=== PATIENT | female | born 1950 | race Caucasian/White ===

== ENCOUNTER 2016-10-14 17:27 | Inpatient (IN) | payer BC ==
[2016-10-14] MEDS ORDERED: NS 0.9% 1000 ML* 1,000 ML IV ONE ×2 (18:19→20:15)
[2016-10-14] MEDS ORDERED: HYDROmorphone* 1 MG/ML 1 ML SYR IV ONE ×2 (18:19→22:35)
[2016-10-14] MEDS ORDERED: Ondansetron INJ* 2 MG/ML VIAL IV ONE (18:19)
--- NOTE | 2016-10-14 18:57 | RAD ---
INDICATION: Vomiting. History of small bowel obstruction. COMPARISON: October 01, 2013 TECHNIQUE: Erect and supine views of the abdomen are submitted. FINDINGS: Bones: There are no acute bony findings. Soft tissues: The soft tissues appear normal. The psoas margins are sharp. Bowel gas pattern: Nondiagnostic. There is a paucity of gas in the colon. There is one mildly prominent loop of small bowel left mid abdomen Calcifications: There are no abnormal calcifications. Other: Postsurgical changes with clips in gallbladder fossa and sutures in the right mid abdomen IMPRESSION: NONSPECIFIC BOWEL GAS PATTERN. SUGGEST FOLLOW-UP INDICATED.
[2016-10-14 19:41] LABS: Hematocrit 46 % (35-47); Hemoglobin 15.1 g/dl (12.0-16.0); Mean Corpuscular HGB Conc 33 g/dl (31-36); Mean Corpuscular Hemoglobin 28 pg (27-31); Mean Corpuscular Volume 84 fL (80-97); Mean Platelet Volume 8 um3 (7.4-10.4); Red Blood Count 5.45 10^6/ul (4.0-5.4); Red Cell Distribution Width 14 % (10.5-15)
[2016-10-14 19:56] LABS: Albumin 4.7 g/dL (3.2-5.2); BUN/Creatinine Ratio 18.6 (8-20); C Reactive Protein 18.65 mg/L (< 5.00); Calcium 10.3 mg/dL (8.6-10.3); EGFR African American 85.4 (>60); EGFR Non-African American 66.4 (>60); Globulin 3.3 g/dL (2-4); Potassium 4.2 mmol/L (3.5-5.0); Total Bilirubin 0.5 mg/dL (0.2-1.0)
--- NOTE | 2016-10-14 22:15 | ED ---
Brielle, DoctorMacie, scribed for Treasure Trujillo MD on 10/14/16 at 1800 . GI/ HPI - HPI Summary HPI Summary: 65 year old female arrived to [facility] c/o lower abdominal pain with N/V/D beginning today. She rates her abdominal pain as 10/10. 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 Pt has a PMHx of HTN, GERD, hypothyroidism, COPD, asthma, and hernia repair. - History of Current Complaint Chief Complaint: EDAbdPain Time Seen by Provider: 10/14/16 17:44 Stated Complaint: ABD PAIN,VOMITING Hx Obtained From: Patient Onset/Duration: Started Hours Ago Timing: Constant, Lasting Hours Severity: Moderate Current Severity: Moderate Pain Intensity: 10 - On 0-10 Numerical Scale Location of Pain: Diffuse Associated Signs and Symptoms: Positive: Nausea, Vomiting, Diarrhea - Allergy/Home Medications Allergies/Adverse Reactions: Allergies Allergy/AdvReac Type Severity Reaction Status Date / Time Adhesive Tape Allergy Blisters Verified 10/14/16 17:38 Latex Allergy Blisters Verified 10/14/16 17:38 Levofloxacin [From Levaquin] Allergy Rash Verified 10/14/16 17:38 Sulfa Antibiotics Allergy Unknown Verified 10/14/16 17:38 Reaction Details Acetaminophen [From Percocet] AdvReac Vomiting Verified 10/14/16 17:38 Hydrocodone [From Vicodin] AdvReac Vomiting Verified 10/14/16 17:38 Oxycodone [From Percocet] AdvReac Vomiting Verified 10/14/16 17:38 PMH/Surg Hx/FS Hx/Imm Hx Endocrine/Hematology History: Reports: Hx Thyroid Disease - hypothyroid Denies: Hx Diabetes Cardiovascular History: Reports: Hx Hypertension Respiratory History: Reports: Hx Asthma, Hx Chronic Obstructive Pulmonary Disease (COPD), Hx Sleep Apnea - no bipap/cpap, Other Respiratory Problems/ Disorders - COPD GI History: Reports: Hx Gastroesophageal Reflux Disease, Hx Hiatal Hernia, Other GI Disorders - Clarisse, Musculoskeletal History: Reports: Hx Arthritis, Other Musculoskeletal History - scoliosis Sensory History: Reports: Hx Contacts or Glasses Denies: Hx Hearing Aid Opthamlomology History: Reports: Hx Contacts or Glasses - Cancer History Cancer Type, Location and Year: CERVICAL CA Hx Chemotherapy: No - Surgical History Surgery Procedure, Year, and Place: Cholecystectomy. appendectomy, herniorrhaphy. tonsilectomy, total hysterectomy at age 27, removal of adhesions. Right arm tendon repair. Rhinoplasty. Cyst removal from sinus. SMALL INTESTINE BLOCKAGE REPAIRED Hx Anesthesia Reactions: No Infectious Disease History: No Infectious Disease History: Denies: Traveled Outside the [place] in Last 30 Days - Family History Known Family History: Positive: Other - BROTHER - DYSLIPIDEMIA, HIV - Social History Occupation: Employed Full-time Lives: Alone Alcohol Use: None Hx Substance Use: No Substance Use Type: Reports: None Hx Tobacco Use: Yes Type: Cigarettes Amount Used/How Often: 1 ppd Length of Time of Smoking/Using Tobacco: 40+ years Have You Smoked in the Last Year: Yes Review of Systems Negative: Fever Positive: Abdominal Pain, Vomiting, Diarrhea, Nausea All Other Systems Reviewed And Are Negative: Yes Physical Exam Triage Information Reviewed: Yes Vital Signs On Initial Exam: Initial Vitals Temp Pulse Resp BP Pulse Ox 96.6 F 78 16 178/93 100 10/14/16 17:39 10/14/16 17:39 10/14/16 17:39 10/14/16 17:39 10/14/16 17:39 Vital Signs Reviewed: Yes Appearance: Positive: Well-Appearing, Pain Distress Skin: Positive: Warm, Skin Color Reflects Adequate Perfusion, Dry Eyes: Positive: EOMI, TERI ENT: Positive: Pharynx normal, TMs normal Neck: Positive: Supple, Nontender Respiratory/Lung Sounds: Positive: Clear to Auscultation, Breath Sounds Present. Negative: Rales, Rhonchi, Wheezes Cardiovascular: Positive: RRR. Negative: Murmur, Rub Abdomen Description: Positive: Nontender, Soft. Negative: Distended, Guarding Bowel Sounds: Positive: Present Musculoskeletal: Positive: Strength/ROM Intact. Negative: Edema Left, Edema Right Neurological: Positive: Sensory/Motor Intact, Alert, Oriented to Person Place, Time, CN Intact II-III Psychiatric: Positive: Normal, Affect/Mood Appropriate Diagnostics - Vital Signs Vital Signs Temp Pulse Resp BP Pulse Ox 10/14/16 17:39 96.6 F 78 16 178/93 100 - Laboratory Lab Results: Lab Results 10/14/16 10/14/16 Range/Units 19:28 19:28 WBC 19.0 H (3.5-10.8) 10^3/ul RBC 5.45 H (4.0-5.4) 10^6/ul Hgb 15.1 (12.0-16.0) g/dl Hct 46 (35-47) % MCV 84 (80-97) fL MCH 28 (27-31) pg MCHC 33 (31-36) g/dl RDW 14 (10.5-15) % Plt Count 361 (150-450) 10^3/ul MPV 8 (7.4-10.4) um3 Neut % (Auto) 86.3 H (38-83) % Lymph % (Auto) 8.9 L (25-47) % [place] % (Auto) 4.2 (1-9) % Eos % (Auto) 0.2 (0-6) % Baso % (Auto) 0.4 (0-2) % Absolute Neuts (auto) 16.4 H (1.5-7.7) 10^3/ul Absolute Lymphs (auto) 1.7 (1.0-4.8) 10^3/ul Absolute Monos (auto) 0.8 (0-0.8) 10^3/ul Absolute Eos (auto) 0 (0-0.6) 10^3/ul Absolute Basos (auto) 0.1 (0-0.2) 10^3/ul Absolute Nucleated RBC 0 10^3/ul Nucleated RBC % 0 Sodium 133 (133-145) mmol/L Potassium 4.2 (3.5-5.0) mmol/L Chloride 99 L (101-111) mmol/L Carbon Dioxide 22 (22-32) mmol/L Anion Gap 12 H (2-11) mmol/L BUN 16 (6-24) mg/dL Creatinine 0.86 (0.51-0.95) mg/dL Est GFR ( Amer) 85.4 (>60) Est GFR (Non-Af Amer) 66.4 (>60) BUN/Creatinine Ratio 18.6 (8-20) Glucose 168 H (70-100) mg/dL Calcium 10.3 (8.6-10.3) mg/dL Total Bilirubin 0.50 (0.2-1.0) mg/dL AST 21 (13-39) U/L ALT 21 (7-52) U/L Alkaline Phosphatase 107 H (34-104) U/L C-Reactive Protein 18.65 H (< 5.00) mg/L Total Protein 8.0 (6.4-8.9) g/dL Albumin 4.7 (3.2-5.2) g/dL Globulin 3.3 (2-4) g/dL Albumin/Globulin Ratio 1.4 (1-3) Lipase 40 (11.0-82.0) U/L Result Diagrams: 10/14/16 19:28 10/14/16 19:28 Lab Statement: Any lab studies that have been ordered have been reviewed, and results considered in the medical decision making process. - Radiology Abdomen X-Ray Radiology Interpretation Completed By: Radiologist - IMPRESSION: NONSPECIFIC BOWEL GAS PATTERN. SUGGEST FOLLOW-UP INDICATED. - EKG 19:05 Cardiac Rate: NL - 72 bpm EKG Rhythm: Sinus Rhythm - normal ST Segment: Normal Ectopy: None GIGU Course/Dx - Course Course Of Treatment: 65 yo female with wbc 19, lactic acid not able to be obtained given difficultyu getting blood in this pt. Her wbc may just be due to emesis. Awaiting CT hr not elevated and pt most concerned she has an sbo. Pt awaiting CT abd pelvis pt to be signed out to Dr. Hicks for final disposition - Diagnoses Provider Diagnoses: Abdominal pain Discharge - Discharge Plan Condition: Stable Disposition: OTHER Discharge Disposition Comment: final disposition by Dr. Hicks The documentation as recorded by the scribDoctor meraz Tahera accurately reflects the service I personally performed and the decisions made by me, Treasure Trujillo MD.
[2016-10-14] MEDS ORDERED: LORazepam INJ* 2 MG/ML 1 ML VIAL IV PUSH ONE (22:35)
--- NOTE | 2016-10-14 23:36 | HP ---
H&P (Free Text) History and Physical: PCP: Hema Hanna MD Date/Time of Evaluation: 10/14/2016 2335 CC: abdominal pain HPI: Mrs Mayo is a 65YO female HX COPD, HTN, endometriosis, & ovarian CA presents with onset this AM of gradually worsening /10 uncharacterizable diffuse non-radiating abdominal pain. She reports subjective F/C, sweats, N/V, B /U/F of urine, diarrheal, and SOB, but no chest pain, cough, or congestion. Emesis does not have black or bloody content. She had a SBO requiring small bowel resection in 2013 which felt the same as today's pain. Evaluation is notable for WBCs of 19k 86.3% neutrophils, glucose of 168, but otherwise reasonable normal. Vitals are hypertensive systolics 150-170s, otherwise stable. CT abd/pel is pending. PMedHx COPD HTN hypothyroidism SBO requiring small bowel resection asthma ovarian CA 2nd SANDY exposure endometriosis GERD Allergies Adhesive Tape Allergy (Verified 10/14/16 17:38) Blisters Latex Allergy (Verified 10/14/16 17:38) Blisters Levofloxacin [From Levaquin] Allergy (Verified 10/14/16 17:38) Rash Sulfa Antibiotics Allergy (Verified 10/14/16 17:38) Unknown Reaction Details Acetaminophen [From Percocet] Adverse Reaction (Verified 10/14/16 17:38) Vomiting Hydrocodone [From Vicodin] Adverse Reaction (Verified 10/14/16 17:38) Vomiting Oxycodone [From Percocet] Adverse Reaction (Verified 10/14/16 17:38) Vomiting Ambulatory Orders Nursing to reconcile. Fluticasone NASAL * [Flonase *] 2 spray NASAL DAILY 09/26/13 Fluticasone-Salmeterol 500-50* [Advair Diskus 500-50*] 1 puff INH BID 09/26/13 Lisinopril TAB* [Prinivil TAB 10 MG*] 20 mg PO DAILY 09/26/13 Tiotropium CAP.INH* [Spiriva*] 18 mcg INH DAILY 09/26/13 Albuterol 2.5MG/3ML (0.083%)* [Ventolin 2.5 MG/3 ML NEB.SABINA*] 2.5 mg INH Q6H PRN 11/24/15 Albuterol HFA INHALER* [Ventolin HFA Inhaler*] 2 puff INH Q4H PRN 11/24/15 Albuterol/Ipratropium RESP(NF) [Combivent Respimat(NF)] 1 puff INH QID 11/24/15 Cetirizine* [ZyrTEC*] 10 mg PO DAILY 11/24/15 Cyanocobalamin TAB* [Vitamin B12 TAB*] 500 mcg PO DAILY 11/24/15 Esomeprazole(NF) [NexIUM(NF)] 40 mg PO DAILY 11/24/15 Levothyroxine TAB* [Synthroid TAB*] 125 mcg PO QAM 11/24/15 Magnesium Oxide TAB* [MagOx 400 TAB*] 400 mg PO DAILY 11/24/15 Metaxalone TAB* [Skelaxin TAB*] 800 mg PO TID PRN 11/24/15 Montelukast Sodium TAB* [Singulair TAB*] 10 mg PO DAILY 11/24/15 Potassium Chlor TAB* [Klor Con ER TAB*] 20 meq PO BID 11/24/15 predniSONE TAB* [Deltasone TAB*] 20 mg PO DAILY 11/24/15 traMADol TAB* [Ultram*] 50 mg PO Q12H PRN #8 tab MDD 2 04/21/16 PSurgHx tonsillectomy cholecystectomy abdominal adhesolysis ventral hernia repair small bowel resection 2nd SBO 2nd adhesions appendectomy hysterectomy SocHx: former smoker w/ ~40PYHX, former drinker, denies recreational drugs; retired from [email or web address]; full code status FamHx: Mother passed in her 70s from heart problems. Father passed in his 50s 2nd complications of alcoholism. ROS: as above, otherwise reviewed and all were negative Constitutional: NAD, normally developed, super morbidly obese white female vitals: Vital Signs Temp 35.9 C 10/14/16 17:39 Pulse 80 10/14/16 23:00 Resp 18 10/14/16 22:46 BP 188/94 10/14/16 23:00 Pulse Ox 96 10/14/16 23:00 Intake & Output 10/13/16 10/14/16 10/14/16 23:59 11:59 23:59 Weight 106.594 kg HEENM: atraumatic; sclera/conjunctiva: non-icteric/clear; hearing: clinically intact; oropharynx: clear, mucosa moist Neck: soft tissue: non-tender; thyroid: normal Pulmonary: clear to auscultation bilaterally, good aeration, no accessory muscle use CV: RR/RR, normal S1S2, no carotid bruit, no jugular venous distention, 2+ B DP/ PT, no edema Abdominal: soft, non-distended, diffusely moderately tender, no rebound/guarding /rigidity, hypoactive bowel sounds, no hepatosplenomegaly or masses, no costovertebral angle tenderness Musculoskeletal: general: grossly intact; gait: stable Integumental: normal appearance and texture of exposed skin Psychiatric orientation: AA&O to PPS affect: fatigued mood: cooperative eye contact: poor content: reliable responses: mildly slowed insight: fair to good Testing: Lab Results 10/14/16 10/14/16 Range/Units 19:28 19:28 WBC 19.0 H (3.5-10.8) 10^3/ul RBC 5.45 H (4.0-5.4) 10^6/ul Hgb 15.1 (12.0-16.0) g/dl Hct 46 (35-47) % MCV 84 (80-97) fL MCH 28 (27-31) pg MCHC 33 (31-36) g/dl RDW 14 (10.5-15) % Plt Count 361 (150-450) 10^3/ul MPV 8 (7.4-10.4) um3 Neut % (Auto) 86.3 H (38-83) % Lymph % (Auto) 8.9 L (25-47) % Bertie % (Auto) 4.2 (1-9) % Eos % (Auto) 0.2 (0-6) % Baso % (Auto) 0.4 (0-2) % Absolute Neuts (auto) 16.4 H (1.5-7.7) 10^3/ul Absolute Lymphs (auto) 1.7 (1.0-4.8) 10^3/ul Absolute Monos (auto) 0.8 (0-0.8) 10^3/ul Absolute Eos (auto) 0 (0-0.6) 10^3/ul Absolute Basos (auto) 0.1 (0-0.2) 10^3/ul Absolute Nucleated RBC 0 10^3/ul Nucleated RBC % 0 Sodium 133 (133-145) mmol/L Potassium 4.2 (3.5-5.0) mmol/L Chloride 99 L (101-111) mmol/L Carbon Dioxide 22 (22-32) mmol/L Anion Gap 12 H (2-11) mmol/L BUN 16 (6-24) mg/dL Creatinine 0.86 (0.51-0.95) mg/dL Est GFR ( Amer) 85.4 (>60) Est GFR (Non-Af Amer) 66.4 (>60) BUN/Creatinine Ratio 18.6 (8-20) Glucose 168 H (70-100) mg/dL Calcium 10.3 (8.6-10.3) mg/dL Total Bilirubin 0.50 (0.2-1.0) mg/dL AST 21 (13-39) U/L ALT 21 (7-52) U/L Alkaline Phosphatase 107 H (34-104) U/L C-Reactive Protein 18.65 H (< 5.00) mg/L Total Protein 8.0 (6.4-8.9) g/dL Albumin 4.7 (3.2-5.2) g/dL Globulin 3.3 (2-4) g/dL Albumin/Globulin Ratio 1.4 (1-3) Lipase 40 (11.0-82.0) U/L ECG, personally reviewed: NSR rate 72, no ischemia XRY abdomen, personally reviewed: IMPRESSION: NONSPECIFIC BOWEL GAS PATTERN. SUGGEST FOLLOW-UP INDICATED. CT abd/pel: , ordered, pending Impression: 65F presenting with gradual onset of diffuse abdominal pain associated with non-bloody N/V, sweats, & diarrhea similar to previous SBO DIAGNOSIS & PLAN Primary abdominal pain, suspect SBO : CT abd/pel pending : pain control : no ABX, monitor : blood & urine CXs : consider surgical consultation in AM pending CT reports & clinical course overnight : supportive care Secondary COPD : albuterol nebs : mometasone/formoterol : tiotropium : incentive spirometry HTN : review meds once reconciled hypothyroidism : review meds once reconciled GERD : omeprazole Admission Rational: observation for abdominal pain DVTp: SCDs & heparin GTT Code Status: full HCP:
[2016-10-14] MEDS ORDERED: HYDROmorphone* 1 MG/ML 1 ML SYR IV PRN (23:50)
[2016-10-14] MEDS ORDERED: PROCHLORPERAZINE INJ 5 MG/ML 2 ML VIAL IV PRN (23:50)
[2016-10-14] MEDS ORDERED: Albuterol 2.5 MG/3 ML NEB.SOL* (0.083%) INH PRN (23:50)
[2016-10-15] MEDS: NS 0.9% 1000 ML* 1,000 ML IV SCH (02:56)
[2016-10-15] MEDS: Pantoprazole IV* 40 MG IV SCH ×2 (02:56→08:24)
[2016-10-15] MEDS: Albuterol 2.5 MG/3 ML NEB.SOL* (0.083%) INH SCH ×2 (04:33→07:22)
[2016-10-15] MEDS: Heparin VIAL(*) 5000 UNITS/ML VIAL (FIVE THOUSAND) SUBCUT SCH ×2 (06:21→14:31)
[2016-10-15 07:19] LABS: Hematocrit 46 % (35-47); Hemoglobin 15.2 g/dl (12.0-16.0); Mean Corpuscular HGB Conc 33 g/dl (31-36); Mean Corpuscular Hemoglobin 28 pg (27-31); Mean Corpuscular Volume 85 fL (80-97); Mean Platelet Volume 8 um3 (7.4-10.4); Red Blood Count 5.43 10^6/ul (4.0-5.4); Red Cell Distribution Width 14 % (10.5-15); White Blood Count 17.4 10^3/ul (3.5-10.8)
[2016-10-15] MEDS ORDERED: Piperac/Tazob 3.375 gm in NS* 3.375 GM/100 ML BAG IVPB ONE (08:00)
--- NOTE | 2016-10-15 08:07 | RAD ---
INDICATION: Small bowel obstruction COMPARISON: CT November 24, 2015 TECHNIQUE: Axial source images were acquired from the level hemidiaphragms to the symphysis pubis. Intravenous contrast was not given reportedly related to patient concerns. This limits evaluation of the solid viscera. Lung bases: Linear changes in both lung bases is most consistent with atelectasis or scarring. Liver: The liver is enlarged with findings of hepatic steatosis. Noncontrast imaging shows no evidence of a hepatic mass or ductal dilatation. Gallbladder: Cholecystectomy. Spleen: The spleen is normal in size. The noncontrast CT appearance is normal. Pancreas: Noncontrast imaging shows no pancreatic mass or ductal dilitation. Adrenal glands: No masses are identified. There may be mild left adrenal hyperplasia Kidneys/Bladder: There is no evidence of nephrolithiasis or CT evidence of hydronephrosis. Noncontrast imaging shows no evidence of a renal mass. The bladder is unremarkable.. Adenopathy: There is no evidence of intraperitoneal or retroperitoneal adenopathy. Evaluation is limited without oral contrast. Fluid collections: There are no free or localized fluid collections. Vessels: The aorta and iliac vessels are normal in caliber. There are no significant atherosclerotic changes. The IVC appears normal Pelvic organs: There is hysterectomy. There is no adnexal mass GI tract: Small bowel obstruction with dilatation of multiple fluid-filled loops small bowel measuring up to 4 cm (see below). There is colonic resection in the right abdomen. The colon is decompressed. Soft tissues: There are multiple ventral hernias. The supraumbilical hernia contains both large and small bowel. The small bowel is dilated in the portion of the herniated left of midline. There are is confirmed on clinical hernias as well containing small bowel. The small bowel obstructions with age related to these hernias. Osseous structures: There are no acute osseous findings. IMPRESSION: SMALL BOWEL OBSTRUCTION SECONDARY TO MULTIPLE VENTRAL HERNIAS.
[2016-10-15] MEDS: Ondansetron INJ* 2 MG/ML VIAL IV PRN ×2 (08:27→17:34)
[2016-10-15] MEDS: Mometasone/Formoter 200/5 MDI INH SCH ×2 (08:50→23:33)
[2016-10-15] MEDS ORDERED: Phenol 1.4% Spray* 177 ML BTL MT PRN (09:08)
--- NOTE | 2016-10-15 09:50 | PN ---
Subjective Date of Service: 10/15/16 Interval History: This is a 65 yo female with COPD who presented with c/o abdominal pain and evidence of SBO with multiple ventral hernias containing loops of small bowel. NG tube has been placed, output has been low this am and patient has vomited once. She reports that she is still quite nauseated with some abdominal pain but improved since admission. She denies SOB or cough, no recent illness. Objective Active Medications: Albuterol (Ventolin 2.5 Mg/3 Ml Neb.Iwona*) 2.5 mg INH Q2H PRN PRN Reason: SOB/WHEEZING Albuterol (Ventolin 2.5 Mg/3 Ml Neb.Iwona*) 2.5 mg INH [id number] AWAKE [facility] Last Admin: 10/15/16 07:22 Dose: 2.5 mg Heparin Sodium (Porcine) (Heparin Vial(*)) 5,000 units SUBCUT Q8HR [facility] Last Admin: 10/15/16 06:21 Dose: 5,000 units Hydromorphone HCl (Dilaudid Iv*) 1 mg IV Q2H PRN PRN Reason: PAIN Sodium Chloride (Ns 0.9% 1000 Ml*) 1,000 mls @ 125 mls/hr IV PER RATE [facility] Last Admin: 10/15/16 02:56 Dose: 125 mls/hr Piperacillin Sod/Tazobactam Sod (Zosyn 3.375 Gm In Ns Premix*) 3.375 gm in 100 mls @ 25 mls/hr IVPB Q8H [facility] Mometasone Furoate/Formoterol Fumar (Dulera 200/5 Mdi*) 2 puff INH BID [facility] Last Admin: 10/15/16 08:50 Dose: 2 inh Ondansetron HCl (Zofran Inj*) 4 mg IV Q6H PRN PRN Reason: NAUSEA Last Admin: 10/15/16 08:27 Dose: 4 mg Pantoprazole Sodium (Protonix Iv*) 40 mg IV DAILY [facility] Last Admin: 10/15/16 08:24 Dose: 40 mg Phenol/Menthol (Chloroseptic Throat [place]*) 2 spray MT Q4H PRN PRN Reason: SORE THROAT Prochlorperazine Edisylate (Compazine Inj*) 10 mg IV Q6H PRN PRN Reason: NAUSEA Vital Signs: Temp Pulse Resp BP Pulse Ox 98.3 F 99 18 160/71 91 10/15/16 07:36 10/15/16 07:36 10/15/16 08:00 10/15/16 07:36 10/15/16 07:36 Appearance: Ill appearing in who appears somewhat uncomfortable. Neck: NL Appearance and Movements; NL JVP Respiratory: Symmetrical Chest Expansion and Respiratory Effort, Clear to Auscultation Cardiovascular: NL Sounds; No Murmurs; No JVD, RRR Abdominal: - - no bowel sounds, abdomen distended, TTP rather diffusely, but greater along midline Extremities: No Edema Skin: No Rash or Ulcers Neurological: Alert and Oriented x 3 Result Diagrams: 10/15/16 07:07 10/14/16 19:28 Additional Lab and Data: . Diagnostic Imaging: CT abd/pelvis - SBO, multiple ventral hernias containing small bowel Assess/Plan/Problems-Billing Assessment: This is a 65 yo female with COPD who presents with abdominal pain and nausea with SBO noted on CT with ventral hernias containing small bowel with questionable incarceration. Surgery is consulting. - Patient Problems (1) Small bowel obstruction Comment: Will multiple ventral hernias containing small bowel, possibly incarcerated Lactic acid has been ordered and is pending XR has been ordered to check NG placement due to low output and vomiting Discussed case with surgical team, appreciate input Plan at this time to continue NG decompression at this time and monitor for signs of improvement, surgery would like to avoid surgical intervention if at possible (2) COPD (chronic obstructive pulmonary disease) Comment: No exacerbation Continue home inhaled medication and prn DuoNebs (3) Morbid obesity Comment: BMI 49 (4) HTN (hypertension) Comment: Normotensive at this time Holding antihypertensives while NPO (5) GERD (gastroesophageal reflux disease) (6) Hypothyroidism (7) Full code status (8) DVT prophylaxis Comment: SQ heparin Status and Disposition: Patient requires continued hospital stay. Convert to inpatient status.
[2016-10-15] MEDS ORDERED: hydrALAZINE IV* 20 MG/ML VIAL IV SLOW PU PRN (11:07)
--- NOTE | 2016-10-15 12:17 | RAD ---
HISTORY: NG tube placement COMPARISONS: None VIEWS:1: Single frontal portable view of the chest at 10:50 AM FINDINGS: LINES AND TUBES: A gastric tube is noted with the tip in the distal esophagus CARDIOMEDIASTINAL SILHOUETTE: The cardiomediastinal silhouette is normal for portable technique. PLEURA: The costophrenic angles are sharp. No pleural abnormalities are noted. LUNG PARENCHYMA: The lungs are clear. ABDOMEN: The upper abdomen is clear. There is no subphrenic gas. BONES AND SOFT TISSUES: No bone or soft tissue abnormalities are noted. IMPRESSION: GASTRIC TUBE WITH THE TIP IN THE DISTAL ESOPHAGUS PRELIMINARY FINDINGS WERE DISCUSSED WITH THE NURSE CARING FOR THE PATIENT AT APPROXIMATELY 12:15 PM ON OCTOBER 15, 2016.
[2016-10-15] MEDS: Piperac/Tazob 3.375 gm in NS* 3.375 GM/100 ML BAG IVPB SCH (13:04)
[2016-10-15 14:42] LABS: Urine Bilirubin Negative (Negative); Urine Glucose Negative (Negative); Urine Nitrite Negative (Negative)
--- NOTE | 2016-10-15 18:24 | CONS ---
CC: Dr. Hoffman; Dr. Hanna CONSULTATION REPORT: DATE OF CONSULT: 10/15/16 PATIENT OF: Dr. He Hoffman. REFERRED TO: Dr. Evin Gómez. REASON FOR CONSULTATION: Abdominal pain. PRIMARY CARE PHYSICIAN: Dr. Hanna. HISTORY OF PRESENT ILLNESS: Ms. Mayo is a pleasant 65-year-old female who presented to the emergen cy room last night with complaints of worsening abdominal pain. The patient notes having multiple a bdominal surgeries in the past, most recently small bowel resection secondary to bowel obstruction 3 years ago. She notes intermittent recurrent abdominal pain and distention on and off for the past 2 years or so, most of it resolved spontaneously within 24 hours. She presented to the emergency ro om last night with worsening abdominal pain for the past 2 days, described it as diffuse, nonradiati ng, generalized abdominal pain; occasionally 10/10 in intensity with associated nausea and vomiting. She also reports associated chills and sweats; but denies any flank pain, changes in the bowel hab its, or bleeding per rectum. She also noticed that her last bowel movement was yesterday morning af ter which she was not able to have any bowel movements or even passing flatus. She was evaluated in the emergency room and noted to have a white count of 19,000, 86% neutrophils for which she was adm itted for further evaluation. This morning, she appears to be slightly comfortable; however, she did complain of recurrent nausea and vomiting despite having an NG tube in place. She denies any nausea and vomiting at this time. PAST MEDICAL HISTORY: Significant for COPD, hypertension, hypothyroidism, recurrent small bowel obs truction requiring surgery and resection 3 years ago, asthma, history of ovarian cancer, endometrios is, and GERD. PAST SURGICAL HISTORY: As mentioned above, the patient had a history of multiple abdominal surgerie s including appendectomy at age 11, hysterectomy at age 29 followed by abdominal adhesiolysis a year later as well as ventral hernia repair 5 years ago and most recently 3 years ago with adhesiolysis secondary to small bowel obstruction as well as small bowel resection. She also has a history of to nsillectomy and cholecystectomy. MEDICATIONS: Current medications and her medications at home include; 1. Fluticasone nasal. 2. Flonase nasal spray daily. 3. Lisinopril 20 mg p.o. daily. 4. Spiriva inhaler 18 mcg daily. 5. Albuterol 2.5 mg/3 mL inhalation q.6 hours p.r.n. for shortness of breath. 6. Albuterol inhaler 2 puffs q.4 hours p.r.n. for shortness of breath. 7. Zyrtec 10 mg p.o. daily. 8. Vitamin B12 of 500 mcg p.o. daily. 9. Nexium 40 mg p.o. daily. 10. Synthroid 125 mcg p.o. daily. 11. Mag oxide 400 mg p.o. daily. 12. Skelaxin 800 mg p.o. t.i.d. p.r.n. for muscle spasm. 13. Singulair 10 mg p.o. daily. 14. Potassium chloride 20 mEq b.i.d. 15. Prednisone 20 mg p.o. daily. 16. Ultram 50 mg p.o. q.12 hours p.r.n. for pain. ALLERGIES: The patient has a long list of allergies including ADHESIVE TAPE that causes blisters, L ATEX allergy, LEVAQUIN that causes rash, SULFA ANTIBIOTICS with unknown reaction, ACETAMINOPHEN from PERCOCET with vomiting, HYDROCODONE causes vomiting, and OXYCODONE causes vomiting as well. FAMILY HISTORY: She denies any family history of colorectal or bowel malignancies SOCIAL HISTORY: The patient is a former smoker with a 40-pack a year history. She is also a former drinker who denies any alcohol intake recently. She is a retired [employer] employ ee. REVIEW OF SYSTEMS: See HPI, otherwise negative. She denies any headache, dizziness, blurred vision , chest pain, or shortness of breath. No flank pain, dysuria, hematuria, or urinary frequency. She admits to chills at home, but denies any fever or recent changes in weight. She admits to diffuse abdominal pain on and off for the past 2 years with associated abdominal distention and nausea and v omiting, but denies any bleeding per rectum. PHYSICAL EXAM: General: She is a pleasant, morbidly obese 65-year-old female lying in bed, appears comfortable and in no acute distress or discomfort at the time of consultation. Vital Signs: Her vitals this morning was temperature of 98.3, pulse of 99, respirations of 16, oxygen saturation of 9 9%, and blood pressure of 160/71. HEENT: Sclerae anicteric, PERRLA, EOMs intact, oropharynx is pin k and moist with no exudate. Lungs: Decreased breath sounds throughout, but no rales or rhonchi no natacha. Equal lung expansion. No retraction noted. Back: Normal curvature, no CVA tenderness. Neck : Supple, trachea midline. No cervical adenopathy, thyromegaly, or JVD. Heart: Regular rate and rhythm. Normal S1 and S2 without rubs, murmurs, or gallops. Breast exam deferred at this time. Ab domen: Round and obese. Abdomen is soft, moderately distended. There is mild diffuse tenderness no natacha without guarding, rebound, or rigidity. A long midline incision noted from prior hernia repair and laparotomy was noted. There is a large ventral hernia noted underneath the old incision and I c ould not appreciate any incarcerated bowel at this time of the exam. Bowel sounds were hypoactive t hroughout. Extremities: Without cyanosis, clubbing, or edema. Neurologic: Grossly intact. Rectal exam deferred at this time. LABORATORY WORKUP: CBC today with white count of 17,400, hemoglobin of 15.2, hematocrit of 46, and platelets of 317. Her chemistry was sodium of 133, potassium 4.2, chloride 99, CO2 of 22, BUN 16, a nd creatinine of 0.8, her glucose was 168. C- reactive protein is 18.6 and lipase of 40. ACCESSORY DIAGNOSTIC DATA: The patient had a CT scan of the abdomen and pelvis last night during he r ER visit, that revealed small bowel obstruction secondary to multiple ventral hernias noted. ASSESSMENT: A 65-year-old female with multiple abdominal surgeries and recurrent small bowel obstru ction who was admitted yesterday with recurrent small bowel obstruction and questionable large ventr al hernia, currently stable with NG placement for decompression. PLAN/RECOMMENDATIONS: We will continue NG compression at this time. Given that the patient had an episode of nausea and vomiting despite having an NG placed, we will obtain a chest x-ray for NG tube verification. I explained to her that the NG tube could be coiled or need to be advanced further a s she only had an output of 100 cc since 7 o'clock this morning. She appears to be comfortable at t his time. We will continue NG decompression and we will evaluate her tomorrow with repeat abdominal x-rays and repeat laboratory workup. I will also discuss the case with Dr. Gómez in anticipation fo r probable operating room management in case if the patient does not have resolution of her SBO. Th e patient understands and agrees with her plans. Thank you for this consultation. BAHGAT MARIANN SANTILLAN [id number]/[facility] #: [id number]
[2016-10-15] MEDS ORDERED: KETAMINE HCL* 50 MG/ML 10 ML VIAL ONE (18:34)
[2016-10-15] MEDS ORDERED: Propofol* 10 MG/ML 20 ML BTL IV PUSH ONE (18:34)
[2016-10-15] MEDS ORDERED: Ketorolac INJ* 30 MG/ML 1 ML VIAL ONE (18:34)
[2016-10-15] MEDS ORDERED: Cisatracurium* 2 MG/ML MDV 5 ML ONE ×2 (18:34→22:04)
[2016-10-15] MEDS ORDERED: Ondansetron INJ* 2 MG/ML VIAL ONE (18:34)
[2016-10-15] MEDS ORDERED: Dexamethasone IV* 4 MG/ML 1 ML (4 MG) ONE (18:34)
[2016-10-15] MEDS ORDERED: Midazolam* 1 MG/ML 5 ML VIAL (5 MG) ONE (18:34)
[2016-10-15] MEDS ORDERED: Succinylcholine* 20 MG/ML 10 ML VIAL ONE (18:34)
[2016-10-15] MEDS ORDERED: fentaNYL* 50 MCG/ML 5 ML VIAL (250 MCG VIAL) ONE ×2 (18:34→21:51)
[2016-10-15] MEDS ORDERED: ceFAZolin 2 GM PREMIX(*) 2 GM/50 ML BAG IVPB ONE (18:54)
[2016-10-15] MEDS ORDERED: Metoclopramide IV* 5 MG/ML 2 ML VIAL ONE (20:32)
[2016-10-15] MEDS ORDERED: fentaNYL* 50 MCG/ML 2 ML VIAL (100 MCG VIAL) ONE (21:06)
[2016-10-15] MEDS ORDERED: Labetalol IV* 5 MG/ML 20 ML VIAL ONE (21:29)
[2016-10-15] MEDS ORDERED: Bupivacaine 0.5% W/EPI SDV* 30 ML VIAL ONE (21:39)
[2016-10-15] MEDS ORDERED: Glycopyrrolate IV* 0.2 MG/ML 1 ML VIAL ONE (22:57)
[2016-10-15] MEDS ORDERED: Neostigmine Methylsulfate* 2 MG/2 ML SYRINGE ONE (22:57)
--- NOTE | 2016-10-15 23:18 | SURGPN ---
Brief Operative Note - Surgery Procedures: Procedures Pre-OP Diagnoses: SBO secondary to multiple ventral hernias Post-op Diagnosis: same Procedure: 1. Placement of central venous line via R femoral Vein 2. Open ventral hernia repairs with biologic mesh Surgeon: Dalia Asst: Son Anethesia: JEROD Cruz EBL: <100cc IVF: 3400cc LR Specimen: none Drains: 2 at #7 ROBBIE drains
[2016-10-15] MEDS ORDERED: fentaNYL* 50 MCG/ML 2 ML VIAL (100 MCG VIAL) IV PRN (23:29)
[2016-10-15] MEDS ORDERED: Ondansetron INJ* 2 MG/ML VIAL IV PRN (23:29)
[2016-10-15] MEDS ORDERED: Levalbuterol 0.63MG/3ML NEB INH PRN (23:29)
[2016-10-15] MEDS ORDERED: HYDROmorphone PCA* 20 MG/20 ML PCA.SYRING ONE (23:38)
[2016-10-15] MEDS ORDERED: HYDROmorphone PCA* 20 MG/20 ML PCA.SYRING PCA SCH (23:45)
[2016-10-16] MEDS: Heparin VIAL(*) 5000 UNITS/ML VIAL (FIVE THOUSAND) SUBCUT SCH ×4 (01:12→21:38)
[2016-10-16 06:32] LABS: Hematocrit 36 % (35-47); Hemoglobin 11.8 g/dl (12.0-16.0); Mean Corpuscular HGB Conc 33 g/dl (31-36); Mean Corpuscular Hemoglobin 28 pg (27-31); Mean Corpuscular Volume 86 fL (80-97); Mean Platelet Volume 8 um3 (7.4-10.4); Red Blood Count 4.19 10^6/ul (4.0-5.4); Red Cell Distribution Width 14 % (10.5-15); White Blood Count 13.4 10^3/ul (3.5-10.8)
[2016-10-16 06:47] LABS: BUN/Creatinine Ratio 27.1 (8-20); Calcium 7.3 mg/dL (8.6-10.3); EGFR African American 86.6 (>60); EGFR Non-African American 67.3 (>60); Magnesium 1.9 mg/dL (1.9-2.7); Potassium 4.1 mmol/L (3.5-5.0)
--- NOTE | 2016-10-16 07:45 | RAD ---
HISTORY: Postop, rule out pneumothorax COMPARISONS: October 15, 2016 VIEWS:1: Single frontal portable view of the chest at 1:35 AM FINDINGS: LINES AND TUBES: A gastric tube is noted. The tip is not well visualized secondary to technique. CARDIOMEDIASTINAL SILHOUETTE: The cardiomediastinal silhouette is normal for portable technique. PLEURA: The costophrenic angles are sharp. No pleural abnormalities are noted. There is no appreciable pneumothorax. LUNG PARENCHYMA: The lung volumes are low. The lungs are clear accounting for the phase of respiration. ABDOMEN: The upper abdomen is clear. There is no subphrenic gas. BONES AND SOFT TISSUES: No bone or soft tissue abnormalities are noted. IMPRESSION: LOW LUNG VOLUMES. LINES AND TUBES ABOVE.
[2016-10-16] MEDS: Pantoprazole IV* 40 MG IV SCH (07:57)
[2016-10-16] MEDS ORDERED: Spiriva Inhaler DEVICE* 1 EACH DEVICE INH ONE (09:00)
--- NOTE | 2016-10-16 09:18 | PN ---
Progress Note - Progress Note SOAP: Subjective: []This is a 65 y/o female with hx of COPD, HTN, endometriosis, ovarian CA, morbid obesity, and multiple abdominal surgeries for recurrent hernia. POD #1 following open ventral hernia repair with biologic mesh for SBO. The patient reports feeling well this morning, with less pain than before her surgery. She feels mild to moderate pain at her incision sites, which is worse with movement but the pain is mostly tolerable and she has only had to use her REPLANTING MACHINE OPERATOR pump twice. She has not been out of bed post-op. She has not had any flatulence or bowel movements since surgery. Her NG tube remains in but has not been draining much in the last few hours. She denies nausea and vomiting. She remains NPO. Objective: []VS: 140/72, 81 HR, 17 resp, 93% on 2L NC Total I: 4848ml, Total O: 1485, balance +3363 Nml, ROBBIE#1 75, ROBBIE#2 30, Urine 450, Hawkins 200 Gen: Pt is resting in bed, in no acute distress, she is pleasant and cooperative with exam CV: RRR, no murmurs, rubs or gallops, no JVD Puml: symmetrical chest expansion w/o excess effort, lung sounds slightly diminished throughout but without wheezes, rales or rhonchi Abd: surgical incisions are covered with dressing and have minimal drainage, abdomen rotund but does not appear distended, no bowel sounds auscultated, minimal diffuse tenderness Extremities: no edema, moves all extremities Neuro: alert and oriented x3 AM labs: WBC: 13.4 (trending down from 17.4), HGB: 11.8 (down from 15.2), HCT 36 , PLT 268 Na: 139, K 4.1, Cl 108, CO2 27, BUN 23, Creatinine 0.85, glucose 132, Ca 7.3 (L) , ionized Ca 3.94 Assessment: []1. POD #1 following open ventral hernia repair with biologic mesh for SBO 2. COPD 3. HTN 4. DVT prophelaxis Plan: []1. Doing well post-op. Get pt OOB as tolerated. Can d/c REPLANTING MACHINE OPERATOR pump if patient is not using and feels it is not needed. Continue NPO with ascent bowel sounds and NG draining green liquid. 2. Use incentive spirometer. Continue home meds and albuterol prn 3. borderline normotensive currently, continue regimen 4. continue subQ heparin and compression stockings Juliano Rios MS3 [facility]
[2016-10-16] MEDS: NS 0.9% 1000 ML* 1,000 ML IV SCH (09:41)
[2016-10-16] MEDS ORDERED: Calcium Gluconate INJ* 1 GM in NS 0.9% 50 ML* 50 ML IVPB ONE (09:53)
--- NOTE | 2016-10-16 10:21 | PN ---
Subjective Date of Service: 10/16/16 Interval History: Patient was taken to the OR last night for reduction and repair of ventral hernia with SBO. No ischemic bowel appreciated. Patient was transferred to the ICU postoperatively. She states that she is feeling quite well this am. Reports minimal pain. She has not passed gas. No nausea or vomiting since surgery. Minimal output from NG tube. Objective Active Medications: Albuterol (Ventolin 2.5 Mg/3 Ml Neb.[place]*) 2.5 mg INH Q2H PRN PRN Reason: SOB/WHEEZING Heparin Sodium (Porcine) (Heparin Vial(*)) 5,000 units SUBCUT Q8HR [facility] Last Admin: 10/16/16 05:55 Dose: 5,000 units Hydralazine HCl (Apresoline Iv*) 5 mg IV SLOW PU Q6H PRN PRN Reason: sBP>180mmHg Sodium Chloride (Ns 0.9% 1000 Ml*) 1,000 mls @ 125 mls/hr IV PER RATE [facility] Last Admin: 10/16/16 09:41 Dose: 125 mls/hr Hydromorphone HCl (Dilaudid Evp Strategy*) 20 mg in 20 mls @ 0 mls/hr [employer]LECT[employer] SIGN SERVIC[employer] .change Q24H KINA; Per Protocol PRN Reason: Protocol Calcium Gluconate 1 gm/ Sodium (Chloride) 60 mls @ 120 mls/hr IVPB ONCE ONE Stop: 10/16/16 10:22 Levalbuterol HCl (Xopenex 0.63mg/3ml Neb*) 0.63 mg INH ONCE PRN PRN Reason: SOB/WHEEZING Stop: 10/16/16 23:30 Mometasone Furoate/Formoterol Fumar (Dulera 200/5 Mdi*) 2 puff INH BID [facility] Last Admin: 10/15/16 23:33 Dose: Not Given Ondansetron HCl (Zofran Inj*) 4 mg IV Q6H PRN PRN Reason: NAUSEA Last Admin: 10/15/16 17:34 Dose: 4 mg Pantoprazole Sodium (Protonix Iv*) 40 mg IV DAILY [facility] Last Admin: 10/16/16 07:57 Dose: 40 mg Phenol/Menthol (Chloroseptic Throat [place]*) 2 spray MT Q4H PRN PRN Reason: SORE THROAT Prochlorperazine Edisylate (Compazine Inj*) 10 mg IV Q6H PRN PRN Reason: NAUSEA Tiotropium [place] (Spiriva Cap.Inh*) 1 cap INH DAILY KINA Vital Signs: Temp Pulse Resp BP Pulse Ox 98 F 81 17 140/72 93 10/16/16 03:48 10/16/16 08:30 10/16/16 08:30 10/16/16 08:30 10/16/16 08:30 Appearance: Well appearing, smiling and joking. In NAD Neck: NL Appearance and Movements; NL JVP Respiratory: Symmetrical Chest Expansion and Respiratory Effort, Clear to Auscultation Cardiovascular: NL Sounds; No Murmurs; No JVD, RRR Abdominal: - - surgical dressing in place with 2 ROBBIE drains, abdominal binder. No bowel sounds appreciated, abd slightly distended Extremities: - - trace LE edema Skin: No Rash or Ulcers Neurological: Alert and Oriented x 3 Result Diagrams: 10/16/16 06:10 10/16/16 06:10 Additional Lab and Data: . Microbiology and Other Data: Microbiology 10/16/16 06:10 Nasal Screen MRSA (PCR)([facility]) - Final Nasal Mrsa Negative Diagnostic Imaging: CT abd/pelvis - SBO, multiple ventral hernias containing small bowel Assess/Plan/Problems-Billing Assessment: This is a 65 yo female with COPD who presents with abdominal pain and nausea with SBO noted on CT with ventral hernias containing small bowel. Surgery is consulting. - Patient Problems (1) Small bowel obstruction Comment: With multiple ventral hernias containing small bowel Now POD #1 s/p reduction of hernia and repair with mesh Little NG output since surgery, no bowel sounds present NG tube can likely be removed, but will leave that decision to surgery Patient to remain NPO at this time, will advance per surgery's recommendations (2) COPD (chronic obstructive pulmonary disease) Comment: No exacerbation Continue home inhaled medication and prn DuoNebs Largely non-compliant with inhalers at home (3) Morbid obesity Comment: BMI 49 (4) HTN (hypertension) Comment: Normotensive at this time Holding antihypertensives while NPO (5) GERD (gastroesophageal reflux disease) (6) Hypothyroidism (7) JUANA (obstructive sleep apnea) Comment: Non-compliant with CPAP recommendations at home (8) Full code status (9) DVT prophylaxis Comment: SQ heparin Status and Disposition: Transfer from ICU back to surgical floor. Inpatient status.
[2016-10-16] MEDS: Mometasone/Formoter 200/5 MDI INH SCH ×2 (11:09→21:38)
[2016-10-16] MEDS: Tiotropium CAP.INH* CAP.INH/18 MCG INH SCH (11:10)
--- NOTE | 2016-10-16 14:22 | PN ---
Progress Note - Progress Note SOAP: Subjective: Pt seen and examined earlier today. We walked together. She feel much better. Positive appetite. No flatus. MS-3 note reviewed and agreed with. Objective: af vss UO good NGT scant abdo: soft/mild distension, incisional tenderness ROBBIE serosang b/l no calf tenderness Labs noted Assessment: POD1 ventral hernia repairs Plan: [d/c mckay, d/c NGT sips of clears DVT proph pain control
[2016-10-16] MEDS ORDERED: Magnesium Sulfate 1 GM IV* 1 GM/100 ML BAG IV ONE (15:00)
[2016-10-16] MEDS: Piperac/Tazob 3.375 gm in NS* 3.375 GM/100 ML BAG IVPB SCH (15:49)
--- NOTE | 2016-10-16 19:44 | OP ---
DATE OF OPERATION: 10/15/16 - ROOM #351 DATE OF : 52 SURGEON: Evin Gómez MD SNAKE CHARMER: MARIANN Farooq ANESTHESIOLOGIST: Dr. Cruz. ANESTHESIA: General. PRE-OP DIAGNOSIS: Small bowel obstruction secondary to multiple ventral hernias. POST-OP DIAGNOSIS: Small bowel obstruction secondary to multiple ventral hernias. OPERATIVE PROCEDURE: 1. Placement of central venous line via right femoral vein. 2. Open ventral hernia repairs with biologic mesh. INDICATIONS: Ms. Mayo is a 65-year-old female who I met earlier today, who presented yesterday to the emergency room and was admitted to the hospitalist service with diagnosis of small bowel obstruction secondary to ventral hernias. The patient was seen and evaluated by my physician commercial real estate assistant. Case was discussed and we followed the course of Ms. Mayo over the day. She showed no significant improvement after NG tube placement and IV fluids. A repeat white blood cell count showed that her white blood cell count was still significantly high with left shift and concern was for potential strangulation of these incarcerated ventral hernias. The patient's physical exam is difficult with body mass index of 49 and we made decision based on our clinical evaluation as well as her vital signs and the radiographic imaging. At that point in the evening, I recommended exploratory laparotomy when the patient still had persistent pain. On re-examination later in the day, the patient did not have peritoneal signs but was diffusely tender, right side more than the left. She remained obstipated with fair NG tube output. I recommended a likely exploratory laparotomy for repair of multiple ventral hernias and the possibility of a bowel resection if this was indeed strangulated. I outlined the details of procedure going over the risks, benefits, and alternatives to Ms. Mayo, going over the possible complications which included not limited to bleeding, infection, prolonged hospital course, possible need for both small and /or large bowel resection, possible ostomy formation, possible need for prolonged hospitalization, dehiscence, need for return to operating room, possible need for ICU care in the immediate and prolonged hospital care as well as even PE, cardiac event, and even . The alternatives were watchful waiting over the course of the next day, did not recommend this, and the patient agreed to proceed with surgery. ESTIMATED BLOOD LOSS: Less than 100 cc. IV FLUIDS: Lactated Ringer's. SPECIMEN: None. DRAINS: Two #7 ROBBIE drain, left in the subcutaneous space. DESCRIPTION OF PROCEDURE: She was identified in the preoperative area, marked, evaluated by Anesthesia, brought to the operating room, placed on the operating table in the supine position. Preoperative antibiotics were given. Sequential devices were placed on bilateral lower extremities. General anesthesia was induced. A Hawkins catheter was inserted and then a triple lumen catheter was placed in the right femoral vein as she only had a 22-gauge poorly working IV peripherally. This was placed under sterile technique. After the prepping the groin, the right femoral vein was accessed. We incised over the wire, dilated the tract, and placed a 20-cm triple lumen catheter in. All three ports aspirated blood easily and were flushed with injectable saline and then this was sutured to the skin. Next, the abdomen was prepped and draped in a standard surgical fashion and a time- out was performed. Previous scarred midline incision was reopened up and scalpel dissection was carried out through scar tissue. We did not readily see anterior fascia, rather we first came across the hernia sac off to the left side. This was cleaned off in its entirety right down to the anterior fascia laterally, superiorly, and inferiorly to the extent of the umbilicus. This was more scarred down and the midline was significantly scarred with difficulty appreciating true fascial layer. We broke through the scar to enter on to the right side of the subcutaneous tissue to identify hernia sac on this side. This was a large sac that when fully isolated, we were able to easily reduce the bowel into the abdomen. The defect was approximately 2 x 3 cm. Fascial edges laterally were cleared off as well as inferiorly and superiorly. Medial aspect was somewhat more difficult. Next, the sac was opened up at the left side of the hernia. We took the sac down to the neck of the defect. This measured approximately 2.5 x 3 cm. Decision was made to primarily close this in the transverse fashion. This was performed with #1 Polysorb suture in a running fashion and we planned to place a Surgisis biologic mesh over this. Attention was returned to the right side of the defect. This hernia sac was also opened up. It should be noted that both hernia sacs once opened up required lysis of adhesions to free the bowel that had been connected to the peritoneum. These adhesions were taken down with both blunt and sharp dissection and the right side hernia was mostly transverse colon, this was decompressed and easily reduced into the abdomen. Edges of the defect were cleared off with the exception of the medial aspect, which was much more difficult to define. This defect was primarily closed similarly in a transverse manner with a running #1 Polysorb suture. Next, a Surgisis 16 x 10 cm mesh was opened up, this was cut basically in the midline and both halves were utilized to cover the primarily closed defects, both left and right of the midline in the upper abdomen. They were tacked to the abdominal wall in all four quadrants and then tacked to the fascia with SecureStrap, taking care not to wrinkle the mesh. The wound was irrigated copiously and hemostasis was achieved. It should also be noted that the bowel was moderately distended at the left-sided ventral hernia and we also did note a smaller ventral hernia just superior to the defect on the right side. This was covered with biologic mesh but we did not enter into the sac. Hemostasis was achieved. We injected Marcaine and prior to closing the skin, placed a #7 ROBBIE drain through separate stab incision and draped this over the meshes in the subcutaneous space. Skin jose were applied to reapproximate the skin. Prior to completing this, I did review the CT scan, we had known of a third hernia more inferior to the main two hernias. My initial inclination was that this was not the area of most interest but after determining that it was only colon in the right-sided ventral hernia, I made the decision to go back into the incision and evaluate this third large ventral hernia. Skin was prepped again with Betadine after removing the ROBBIE drain and additional time-out was performed. Skin jose were removed and we entered into our subcutaneous plane again, the meshes were in place. There was no evidence of bleeding. Hemostasis was excellent. We increased our incision inferiorly, passed the umbilicus, and both blunt and sharp dissection was utilized to find the third large hernia defect in the right lower quadrant. Once this was located, we cleaned this off. The sac was opened up, it was already reduced just in the dissection, but nevertheless we opened this up, found small bowel adhered to the peritoneum. This was taken down with both blunt and sharp dissection until we could sweep the full peritoneal cavity anteriorly and then we cleared off the fascia as best we could. At this point, the superior aspect of the fascia was not quite good and extended to the umbilicus up towards the other defect superior to this. The lateral fascia and inferior fascia were somewhat better and the midline area was little improved since this only had the one hernia defect at this level. For this reason, we closed this in a vertical fashion again with a running #1 Polysorb suture and again placed another Surgisis 10 x 6 cm over this and similarly sutured in 4 quadrants with additional SecureStraps to keep it in proper fashion without wrinkling. Wound was then irrigated. Hemostasis achieved. At this time, we placed two #7 ROBBIE drains, one left and right, and the defect was reapproximated with skin jose followed by sterile dressing. The patient tolerated the procedure well, was woken up in the OR, and transferred to the PACU in stable condition. CC: Dr. Hanna; [facility]* [id number]/[facility] #: [id number] MTDD
[2016-10-17] MEDS: Levothyroxine TAB* 125 MCG TAB PO SCH (06:04)
[2016-10-17] MEDS: Heparin VIAL(*) 5000 UNITS/ML VIAL (FIVE THOUSAND) SUBCUT SCH ×3 (06:04→21:42)
[2016-10-17 07:07] LABS: Comments Flag Yes; Hematocrit 37 % (35-47); Hemoglobin 12.1 g/dl (12.0-16.0); Mean Corpuscular HGB Conc 32 g/dl (31-36); Mean Corpuscular Hemoglobin 28 pg (27-31); Mean Corpuscular Volume 86 fL (80-97); Red Blood Count 4.33 10^6/ul (4.0-5.4); Red Cell Distribution Width 14 % (10.5-15); White Blood Count 18.9 10^3/ul (3.5-10.8)
[2016-10-17 07:08] LABS: Add Diff/Slide Review? Manual Diff Added
[2016-10-17 07:23] LABS: Eosinophils % 2 % (0-6); Immature Granulocytes 1 % (0-9); Neutrophil % 74 % (38-83); RBC Morphology Normal (Normal)
[2016-10-17 07:45] LABS: BUN/Creatinine Ratio 17.6 (8-20); Calcium 7.9 mg/dL (8.6-10.3); EGFR Non-African American 87.1 (>60)
[2016-10-17 08:56] LABS: Potassium 4.6 mmol/L (3.5-5.0)
[2016-10-17] MEDS: Lisinopril TAB* 10 MG PO SCH (09:28)
[2016-10-17] MEDS: Magnesium Oxide TAB* 400 MG PO SCH (09:28)
[2016-10-17] MEDS: Tiotropium CAP.INH* CAP.INH/18 MCG INH SCH (09:28)
[2016-10-17] MEDS: Mometasone/Formoter 200/5 MDI INH SCH ×2 (09:29→20:05)
[2016-10-17] MEDS: Pantoprazole IV* 40 MG IV SCH (09:29)
--- NOTE | 2016-10-17 10:32 | SURGPN ---
Subjective - Introduction -: Reports doing better, less pain, no N/V, fever or chills. Uses her PARK AIDE on occasions. No flatus, but can hear her bowels "rumbling". Tolerating clear liquids. - Medications -: Active Medications Generic Name Dose Route Start Last Admin Trade Name Freq PRN Reason Stop Dose Admin Albuterol 2.5 mg 10/14/16 23:50 Ventolin 2.5 Mg/3 Ml Neb.[place]wona* INH Q2H PRN SOB/WHEEZING Heparin Sodium (Porcine) 5,000 units 10/15/16 06:00 10/17/16 06:04 Heparin Vial(*) SUBCUT 5,000 units Q8HR KINA Administration Hydralazine HCl 5 mg 10/15/16 11:07 Apresoline Iv* IV SLOW PU Q6H PRN sBP>180mmHg Hydromorphone HCl 20 mg in 20 mls @ 0 mls/hr 10/15/16 23:45 Dilaudid Contact Lens Molder* PARK AIDE .change Q24H KINA Protocol Per Protocol Sodium Chloride 1,000 mls @ 60 mls/hr 10/16/16 17:14 Ns 0.9% 1000 Ml* IV PER RATE KINA Levothyroxine Sodium 125 mcg 10/17/16 06:00 10/17/16 06:04 Synthroid Tab* PO 125 mcg DAILY@0600 KINA Administration Lisinopril 20 mg 10/17/16 09:00 10/17/16 09:28 Prinivil Tab* PO 20 mg DAILY KINA Administration Magnesium Oxide 400 mg 10/17/16 09:00 10/17/16 09:28 Magox 400 Tab* PO 400 mg DAILY KINA Administration Mometasone Furoate/Formoterol Fumar 2 puff 10/15/16 09:00 10/17/16 09:29 Dulera 200/5 Mdi* INH 2 inh BID KINA Administration Ondansetron HCl 4 mg 10/14/16 23:50 10/15/16 17:34 Zofran Inj* IV 4 mg Q6H PRN Administration NAUSEA Pantoprazole Sodium 40 mg 10/14/16 23:45 10/17/16 09:29 Protonix Iv* IV 40 mg DAILY KINA Administration Phenol/Menthol 2 spray 10/15/16 09:08 Chloroseptic Throat [place]* MT Q4H PRN SORE THROAT Prochlorperazine Edisylate 10 mg 10/14/16 23:50 Compazine Inj* IV Q6H PRN NAUSEA Tiotropium [place] 1 cap 10/16/16 09:00 10/17/16 09:28 Spiriva Cap.Inh* INH 1 cap DAILY KINA Administration Objective - Objective -: Awake and alert, comfortable on bed, in NAD. - Intake and Output -: Intake & Output 10/15/16 10/16/16 10/17/16 10/18/16 06:59 06:59 06:59 06:59 Intake Total 4848 3466 120 Output Total 1485 1755 70 Balance 3363 1711 50 Weight 246 lb 11.156 oz Intake: IV Fluids 3912 1960 LR 3400 NS (0.9%) 512 1960 IVPB 936 816 Magnesium Sulfate 106 NS (0.9%) 900 710 abx 36 Oral 0 690 120 Output: NG Tube Drainage Amount 400 ROBBIE #1 75 175 55 ROBBIE #2 30 130 15 Urine 450 1050 [place] 200 400 Residual 30 [place] 16 Fr 30 Estimated Blood Loss 300 Surgical Physical Exam - Comments -: VSS, afebrile. Lungs CTA bilat. Heart RRR, no murmurs Abdomen, soft, less distended. Mild incisional tenderness. Dressings clean and dry. J-vacs with 10-15cc serous output. Bowel sounds hypoactive on R side, absent on L side. Ext. no edema. Labs noted, WBCs up to 18,900, chemistry WNL Assessment and Plan - Assessment -: POD#2, s/p exploratory laparotomy with VIH repair, improving clinically. - Plan Additional Comments: Ambulate as tolerated. Keep on clear liquids for now. Leukocytosis, unclear etiology, probably post-op reaction, will discuss with Dr. Gómez Await bowel functions. GI and DVT prophylaxis Check labs in AM
[2016-10-17] MEDS: NS 0.9% 1000 ML* 1,000 ML IV SCH (11:22)
[2016-10-17] MEDS ORDERED: Morphine INJ* 2 MG/ML 1 ML SYRINGE IV PRN (14:54)
[2016-10-17] MEDS ORDERED: Ketorolac INJ* 15 MG/ML 1 ML VIAL IV PUSH PRN (14:54)
[2016-10-17] MEDS ORDERED: oxyCODONE/Acetamin 5/325 MG* TAB PO PRN (14:55)
--- NOTE | 2016-10-17 14:58 | PN ---
Progress Note - Progress Note SOAP: Subjective: Pt seen and examined. Feeling OK. Trying to not use narcotics. No flatus. no Nausea Objective: af vss lungs decre BS b/l abdo: obese, incisional tenderness ROBBIE x2 serous no calf tenderness labs noted elevated wbc Assessment: POD 2 ventral hernia repair, resolving sbo Plan: pain control ROBBIE drain teacing OOB GI, dvt proph
--- NOTE | 2016-10-17 15:42 | ED ---
I, Macei Talbot, scribed for Treasure Trujillo MD on 10/14/16 at 2236 . Progress - Progress Note Progress Note: Re-Eval at 22:35 - Pt unchanged, still vomiting. 22:43 - Spoke with Dr. Hoffman (Hospitalist). Agrees to admit pt. Course/Dx - Course Course Of Treatment: 65 yo female with wbc 19, lactic acid not able to be obtained given difficultyu getting blood in this pt. Her wbc may just be due to emesis. Awaiting CT hr not elevated and pt most concerned she has an sbo. Pt awaiting CT abd pelvis pt to be signed out to Dr. Hicks for final disposition - Diagnoses Provider Diagnoses: Abdominal pain The documentation as recorded by the scribe, Macie Talbot accurately reflects the service I personally performed and the decisions made by me, Treasure Trujillo MD.
--- NOTE | 2016-10-17 18:05 | PN ---
Subjective Date of Service: 10/17/16 Interval History: Patient seen and examined at bedside. Denies chills, shortness of breath, chest discomfort, N/V/D. Pt denies passing flatus. She reports feeling feverish and mild abdominal pain. Family History: Unchanged from Admission Social History: Unchanged from Admission Past Medical History: Unchanged from Admission Objective Active Medications: Albuterol (Ventolin 2.5 Mg/3 Ml Neb.Iwona*) 2.5 mg INH Q2H PRN Reason: SOB/ WHEEZING Heparin Sodium (Porcine) (Heparin Vial(*)) 5,000 units SUBCUT Q8HR KINA Hydralazine HCl (Apresoline Iv*) 5 mg IV SLOW PU Q6H PRN Reason: sBP>180mmHg Hydromorphone HCl (Dilaudid Tab*) 2 mg PO Q4H PRN Reason: PAIN Sodium Chloride (Ns 0.9% 1000 Ml*) 1,000 mls @ 60 mls/hr IV PER RATE [facility] Ketorolac Tromethamine (Toradol Inj*) 15 mg IV PUSH Q6H PRN Reason: PAIN Levothyroxine Sodium (Synthroid Tab*) 125 mcg PO DAILY@0600 KINA Lisinopril (Prinivil Tab*) 20 mg PO DAILY KINA Magnesium Oxide (Magox 400 Tab*) 400 mg PO DAILY KINA Mometasone Furoate/Formoterol Fumar (Dulera 200/5 Mdi*) 2 puff INH BID KINA Morphine Sulfate (Morphine Inj (Syringe)*) 2 mg IV Q2H PRN Reason: PAIN - MILD Ondansetron HCl (Zofran Inj*) 4 mg IV Q6H PRN Reason: NAUSEA Pantoprazole Sodium (Protonix Iv*) 40 mg IV DAILY [facility] Phenol/Menthol (Chloroseptic Throat [place]*) 2 spray MT Q4H PRN Reason: SORE THROAT Prochlorperazine Edisylate (Compazine Inj*) 10 mg IV Q6H PRN Reason: NAUSEA Tiotropium [place] (Spiriva Cap.Inh*) 1 cap INH DAILY [facility] Vital Signs 10/16/16 10/16/16 10/16/16 18:00 19:00 19:22 Temperature 98.2 F Pulse Rate 82 Respiratory 16 16 16 Rate Blood Pressure 140/66 (mmHg) O2 Sat by Pulse 95 95 98 Oximetry 10/16/16 10/16/16 10/16/16 21:35 22:00 23:00 Temperature Pulse Rate Respiratory 16 16 16 Rate Blood Pressure (mmHg) O2 Sat by Pulse 98 96 96 Oximetry 10/16/16 10/17/16 10/17/16 23:33 00:00 01:00 Temperature 98.3 F Pulse Rate 82 Respiratory 16 16 16 Rate Blood Pressure 149/58 (mmHg) O2 Sat by Pulse 95 91 91 Oximetry 10/17/16 10/17/16 10/17/16 02:00 03:00 03:57 Temperature 98.2 F Pulse Rate 89 Respiratory 16 16 16 Rate Blood Pressure 158/68 (mmHg) O2 Sat by Pulse 91 98 96 Oximetry 10/17/16 10/17/16 10/17/16 04:00 05:00 07:00 Temperature Pulse Rate Respiratory 16 18 16 Rate Blood Pressure (mmHg) O2 Sat by Pulse 91 91 94 Oximetry 10/17/16 10/17/16 10/17/16 07:19 07:35 07:48 Temperature 97.7 F Pulse Rate 82 Respiratory 17 16 16 Rate Blood Pressure 143/69 (mmHg) O2 Sat by Pulse 88 93 93 Oximetry 10/17/16 10/17/16 10/17/16 09:48 11:00 11:56 Temperature 98.6 F Pulse Rate 84 Respiratory 16 18 16 Rate Blood Pressure 125/60 (mmHg) O2 Sat by Pulse 94 94 97 Oximetry 10/17/16 15:36 Temperature 98.4 F Pulse Rate 79 Respiratory 22 Rate Blood Pressure 139/57 (mmHg) O2 Sat by Pulse 97 Oximetry Oxygen Devices in Use Now: None Eyes: No Scleral Icterus, PERRLA Ears/Nose/Mouth/Throat: Mucous Membranes Moist Neck: NL Appearance and Movements; NL JVP, Trachea Midline Respiratory: Symmetrical Chest Expansion and Respiratory Effort, Clear to Auscultation Cardiovascular: NL Sounds; No Murmurs; No JVD, RRR Abdominal: - - Hypoactive, Abdomen soft, large, and tender at the incision site Extremities: No Edema Neurological: Alert and Oriented x 3, NL Muscle Strength and Tone Lines/Tubes/Other Access: Clean, Dry and Intact Peripheral IV - site benign Nutrition: Taking PO's Result Diagrams: 10/17/16 06:22 10/17/16 06:22 Additional Lab and Data: . Microbiology and Other Data: Microbiology 10/16/16 06:10 Nasal Screen MRSA (PCR)(BOLIVAR) - Final Nasal Mrsa Negative Diagnostic Imaging: CT abd/pelvis - SBO, multiple ventral hernias containing small bowel Assess/Plan/Problems-Billing Assessment: Ms. Mayo is a 65 yo female with COPD who presents with abdominal pain and nausea with SBO noted on CT with ventral hernias containing small bowel. Surgery is consulting. - Patient Problems (1) Small bowel obstruction Code(s): K56.69 - OTHER INTESTINAL OBSTRUCTION SNOMED Code(s): 852452869 Comment: - With multiple ventral hernias containing small bowel - POD #2 s/p reduction of hernia and repair with mesh - Not passing flatus, hypoactive bowel sounds - Continue clear liquid diet (2) Leukocytosis Code(s): D72.829 - ELEVATED WHITE BLOOD CELL COUNT, UNSPECIFIED SNOMED Code(s) : 273455441 Comment: - Denies urinary symptoms and afebrile - Suspect stress response from surgery (3) COPD (chronic obstructive pulmonary disease) Code(s): J44.9 - CHRONIC OBSTRUCTIVE PULMONARY DISEASE, UNSPECIFIED SNOMED Code(s): 35066435 Comment: - No exacerbation - Continue home inhaled medication and prn DuoNebs - Largely non-compliant with inhalers at home (4) Morbid obesity Code(s): E66.01 - MORBID (SEVERE) OBESITY DUE TO EXCESS CALORIES SNOMED Code(s ): 609680490 Comment: BMI 49 (5) HTN (hypertension) Code(s): I10 - ESSENTIAL (PRIMARY) HYPERTENSION SNOMED Code(s): 24513912 Comment: - Normotensive at this time - Continue Lisinopril (6) GERD (gastroesophageal reflux disease) Code(s): K21.9 - GASTRO-ESOPHAGEAL REFLUX DISEASE WITHOUT ESOPHAGITIS SNOMED Code(s): 685709308 Comment: - Continue PPI (7) Hypothyroidism Code(s): E03.9 - HYPOTHYROIDISM, UNSPECIFIED SNOMED Code(s): 29135640 Comment: - Continue Levothyroxine (8) JUANA (obstructive sleep apnea) Code(s): G47.33 - OBSTRUCTIVE SLEEP APNEA (ADULT) (PEDIATRIC) SNOMED Code(s): 68509588 Comment: - Non-compliant with CPAP recommendations at home (9) DVT prophylaxis Code(s): FCZ2065 - SNOMED Code(s): 943374653 Comment: - SQ heparin (10) Full code status Code(s): Z78.9 - OTHER SPECIFIED HEALTH STATUS SNOMED Code(s): 520204222 Status and Disposition: Inpatient. Slow to progress after surgery. Plan to discharge to home when medically stable and bowel function has returned.
[2016-10-17] MEDS: HYDROmorphone TAB* 2 MG PO PRN (21:41)
[2016-10-18] MEDS: NS 0.9% 1000 ML* 1,000 ML IV SCH (04:38)
[2016-10-18] MEDS: Levothyroxine TAB* 125 MCG TAB PO SCH (05:45)
[2016-10-18] MEDS: Heparin VIAL(*) 5000 UNITS/ML VIAL (FIVE THOUSAND) SUBCUT SCH ×3 (05:46→22:19)
[2016-10-18 05:58] LABS: Hematocrit 34 % (35-47); Hemoglobin 10.8 g/dl (12.0-16.0); Mean Corpuscular HGB Conc 32 g/dl (31-36); Mean Corpuscular Hemoglobin 28 pg (27-31); Mean Corpuscular Volume 86 fL (80-97); Mean Platelet Volume 8 um3 (7.4-10.4); Red Cell Distribution Width 13 % (10.5-15); White Blood Count 11.8 10^3/ul (3.5-10.8)
[2016-10-18 06:34] LABS: BUN/Creatinine Ratio 11.7 (8-20); Calcium 7.7 mg/dL (8.6-10.3); EGFR African American 129.4 (>60); EGFR Non-African American 100.6 (>60); Magnesium 1.9 mg/dL (1.9-2.7); Potassium 3.5 mmol/L (3.5-5.0)
[2016-10-18] MEDS: HYDROmorphone TAB* 2 MG PO PRN ×2 (08:39→22:19)
[2016-10-18] MEDS: Tiotropium CAP.INH* CAP.INH/18 MCG INH SCH (08:39)
[2016-10-18] MEDS: Lisinopril TAB* 10 MG PO SCH (08:39)
[2016-10-18] MEDS: Magnesium Oxide TAB* 400 MG PO SCH (08:40)
[2016-10-18] MEDS: Mometasone/Formoter 200/5 MDI INH SCH ×2 (08:41→19:20)
[2016-10-18] MEDS: Pantoprazole IV* 40 MG IV SCH (08:42)
--- NOTE | 2016-10-18 10:38 | PN ---
Progress Note - Progress Note SOAP: Subjective: Doing very well, playing cards with family members. Denies any complaints. Tolerating liquid diet, passing flatus. Objective: VSS, afebrile Abdomen, soft, NT, ND J-vacs with gtts serous output. Incision C/D/I Ext. no edema Assessment: POD#3, s/p exploratory laparotomy with large VIH repair, doing very well. Plan: Advance diet Ambulate PO pain meds prn Likely home in AM
--- NOTE | 2016-10-18 12:26 | PN ---
Subjective Date of Service: 10/18/16 Interval History: Patient seen and examined at bedside. Pt states that she is feeling well and has started to pass flatus, but no stool. Denies chills, chest discomfort, shortness of breath, N/V/D. Pt reports intermittently feeling warm. Pt states that she was tested for sleep apnea in the past through her work and doesn't want to wear a CPAP, she would be willing to wear oxygen at night. Family History: Unchanged from Admission Social History: Unchanged from Admission Past Medical History: Unchanged from Admission Objective Active Medications: Albuterol (Ventolin 2.5 Mg/3 Ml Neb.Iwona*) 2.5 mg INH Q2H PRN Reason: SOB/ WHEEZING Heparin Sodium (Porcine) (Heparin Vial(*)) 5,000 units SUBCUT Q8HR KINA Hydralazine HCl (Apresoline Iv*) 5 mg IV SLOW PU Q6H PRN Reason: sBP>180mmHg Hydromorphone HCl (Dilaudid Tab*) 2 mg PO Q4H PRN Reason: PAIN Ketorolac Tromethamine (Toradol Inj*) 15 mg IV PUSH Q6H PRN Reason: PAIN Levothyroxine Sodium (Synthroid Tab*) 125 mcg PO DAILY@0600 KINA Lisinopril (Prinivil Tab*) 20 mg PO DAILY KINA Magnesium Oxide (Magox 400 Tab*) 400 mg PO DAILY KINA Mometasone Furoate/Formoterol Fumar (Dulera 200/5 Mdi*) 2 puff INH BID KINA Morphine Sulfate (Morphine Inj (Syringe)*) 2 mg IV Q2H PRN Reason: PAIN - MILD Ondansetron HCl (Zofran Inj*) 4 mg IV Q6H PRN Reason: NAUSEA Pantoprazole Sodium (Protonix Iv*) 40 mg IV DAILY KINA Phenol/Menthol (Chloroseptic Throat [place]*) 2 spray MT Q4H PRN Reason: SORE THROAT Prochlorperazine Edisylate (Compazine Inj*) 10 mg IV Q6H PRN Reason: NAUSEA Tiotropium [place] (Spiriva Cap.Inh*) 1 cap INH DAILY KINA Vital Signs 10/17/16 10/17/16 10/17/16 13:00 15:00 15:36 Temperature 98.4 F Pulse Rate 79 Respiratory 18 16 22 Rate Blood Pressure 139/57 (mmHg) O2 Sat by Pulse 94 96 97 Oximetry 10/17/16 10/17/16 10/17/16 16:00 17:00 20:02 Temperature 98.8 F Pulse Rate 88 Respiratory 16 18 Rate Blood Pressure 154/64 (mmHg) O2 Sat by Pulse 97 94 86 Oximetry 10/17/16 10/17/16 10/17/16 20:06 20:57 21:41 Temperature Pulse Rate 85 Respiratory 16 18 18 Rate Blood Pressure (mmHg) O2 Sat by Pulse 92 Oximetry 10/17/16 10/17/16 10/17/16 21:46 23:16 23:41 Temperature 99.8 F Pulse Rate 86 87 Respiratory 16 18 Rate Blood Pressure 140/65 (mmHg) O2 Sat by Pulse 94 93 Oximetry 10/18/16 10/18/16 10/18/16 03:29 07:36 08:00 Temperature 98.0 F 98.1 F Pulse Rate 84 77 Respiratory 18 18 18 Rate Blood Pressure 154/70 140/69 (mmHg) O2 Sat by Pulse 93 91 91 Oximetry 10/18/16 10/18/16 10/18/16 08:39 09:03 10:39 Temperature Pulse Rate 75 Respiratory 16 16 Rate Blood Pressure (mmHg) O2 Sat by Pulse 94 Oximetry Oxygen Devices in Use Now: None Appearance: NAD, sitting up in bed. Respiratory: Symmetrical Chest Expansion and Respiratory Effort, Clear to Auscultation Cardiovascular: NL Sounds; No Murmurs; No JVD, RRR Abdominal: - - Bowel sounds hypoactive, Abdomen soft, large, tender at incision line Extremities: No Edema Skin: - - Abdominal incision to left side of midline well approximated with jose intact, open to air Neurological: Alert and Oriented x 3, NL Muscle Strength and Tone Lines/Tubes/Other Access: Clean, Dry and Intact Central Line - Right groin, intact Nutrition: Taking PO's Result Diagrams: 10/18/16 05:35 10/18/16 05:35 Additional Lab and Data: . Microbiology and Other Data: Microbiology 10/16/16 06:10 Nasal Screen MRSA (PCR)(BOLIVAR) - Final Nasal Mrsa Negative Diagnostic Imaging: CT abd/pelvis - SBO, multiple ventral hernias containing small bowel Assess/Plan/Problems-Billing Assessment: Ms. Mayo is a 65 yo female with COPD who presents with abdominal pain and nausea with SBO noted on CT with ventral hernias containing small bowel. Surgery is consulting. - Patient Problems (1) Small bowel obstruction Code(s): K56.69 - OTHER INTESTINAL OBSTRUCTION SNOMED Code(s): 533115017 Comment: - With multiple ventral hernias containing small bowel - POD #3 s/p reduction of hernia and repair with mesh - Passing flatus, hypoactive bowel sounds, no BM yet - Advanced to full liquid diet (2) Leukocytosis Code(s): D72.829 - ELEVATED WHITE BLOOD CELL COUNT, UNSPECIFIED SNOMED Code(s) : 643156308 Comment: - Improved - Denies urinary symptoms and afebrile - Suspect stress response from surgery (3) COPD (chronic obstructive pulmonary disease) Code(s): J44.9 - CHRONIC OBSTRUCTIVE PULMONARY DISEASE, UNSPECIFIED SNOMED Code(s): 90107663 Comment: - No exacerbation - Continue home inhaled medication and prn DuoNebs - Largely non-compliant with inhalers at home (4) Morbid obesity Code(s): E66.01 - MORBID (SEVERE) OBESITY DUE TO EXCESS CALORIES SNOMED Code(s ): 461643968 Comment: BMI 49 (5) HTN (hypertension) Code(s): I10 - ESSENTIAL (PRIMARY) HYPERTENSION SNOMED Code(s): 33133775 Comment: - Normotensive at this time - Continue Lisinopril (6) GERD (gastroesophageal reflux disease) Code(s): K21.9 - GASTRO-ESOPHAGEAL REFLUX DISEASE WITHOUT ESOPHAGITIS SNOMED Code(s): 385489505 Comment: - Continue PPI (7) Hypothyroidism Code(s): E03.9 - HYPOTHYROIDISM, UNSPECIFIED SNOMED Code(s): 35993104 Comment: - Continue Levothyroxine (8) JUANA (obstructive sleep apnea) Code(s): G47.33 - OBSTRUCTIVE SLEEP APNEA (ADULT) (PEDIATRIC) SNOMED Code(s): 53847429 Comment: - Non-compliant with CPAP recommendations at home - Willing to use O2 at night, will get an overnight pulse ox study tonight (9) DVT prophylaxis Code(s): BSM9472 - SNOMED Code(s): 316670889 Comment: - SQ heparin (10) Full code status Code(s): Z78.9 - OTHER SPECIFIED HEALTH STATUS SNOMED Code(s): 712059034 Status and Disposition: Inpatient. Slow to progress after surgery. Plan to discharge to home when medically stable and bowel function has returned.
[2016-10-19] MEDS: HYDROmorphone TAB* 2 MG PO PRN (04:12)
[2016-10-19] MEDS: Heparin VIAL(*) 5000 UNITS/ML VIAL (FIVE THOUSAND) SUBCUT SCH (05:58)
[2016-10-19] MEDS: Levothyroxine TAB* 125 MCG TAB PO SCH (05:58)
[2016-10-19] MEDS: Mometasone/Formoter 200/5 MDI INH SCH (08:01)
[2016-10-19] MEDS: Tiotropium CAP.INH* CAP.INH/18 MCG INH SCH (08:02)
[2016-10-19 08:28] VITALS: BP 154/61
--- NOTE | 2016-10-19 09:17 | PN ---
Progress Note - Progress Note SOAP: Subjective: Pt is a 65 y/o female with a Hx of obesity, hypertension, JUANA, and multiple abdominal surgeries for recurrent hernias. POD#4 s/p exploratory laparotamy with with large ventral hernia repair. The patient reports doing well. She has been OOB frequently and walking the hallways. She does not have much abdominal pain, only with sharp movements, like turning in bed. She was advanced to a full liquid diet yesterday. She ate cream of wheat and ice cream for breakfast, without realizing that the ice cream contained dairy products. She is lactose intolerant and had a very small and loose bowel movement after eating ice cream. Thereafter, she says that the kitchen only brought her clear liquids for lunch and dinner. She has not had subsequent BMs but is passing flatus. Objective: Vital signs stable, afebrile No acute distress S1 and S2 auscultated, no M/R/G; lungs clear to auscultation Bowel sounds present but hypoactive, abdomen soft, diffusely tender to deeper palpation Incision sites clean, dry and intact without excess erythema. ROBBIE draining serosanguineous fluid. 1+ extremity edema below the shins. Assessment: POD#4 s/p exploratory laparotamy with with large ventral hernia repair, showing significant clinical improvement. Plan: Continue full liquid diet, with lactose free full liquids (lactaid) Continue to ambulate PO pain medication PRN Disposition: Should be ready for discharge possibly later today considering that she had a small bowel movement, has bowel sounds, only mild pain present and ambulating well. Has JUANA confirmed by oximitry study, so arrangements for home oxygen or CPAP fitting should be arranged prior to discharge Juliano Rios MS3- [facility]
--- NOTE | 2016-10-19 09:41 | PN ---
Subjective Date of Service: 10/19/16 Interval History: Patient seen and examined at bedside. Pt states that her pain is controlled. Denies fever, chills, shortness of breath, chest discomfort, N/V/D. Pt states that she is passing flatus, but no further BMs since she had a small BM yesterday. She reports tolerating a full liquid diet. Discussed with Pt follow up with pulmonology for eval for her sleep apnea and COPD, Pt agrees to go home with O2 at night. Family History: Unchanged from Admission Social History: Unchanged from Admission Past Medical History: Unchanged from Admission Objective Active Medications: Albuterol (Ventolin 2.5 Mg/3 Ml Neb.Iwona*) 2.5 mg INH Q2H PRN Reason: SOB/ WHEEZING Heparin Sodium (Porcine) (Heparin Vial(*)) 5,000 units SUBCUT Q8HR KINA Hydralazine HCl (Apresoline Iv*) 5 mg IV SLOW PU Q6H PRN Reason: sBP>180mmHg Hydromorphone HCl (Dilaudid Tab*) 2 mg PO Q4H PRN Reason: PAIN Ketorolac Tromethamine (Toradol Inj*) 15 mg IV PUSH Q6H PRN Reason: PAIN Levothyroxine Sodium (Synthroid Tab*) 125 mcg PO DAILY@0600 KINA Lisinopril (Prinivil Tab*) 20 mg PO DAILY KINA Magnesium Oxide (Magox 400 Tab*) 400 mg PO DAILY KINA Mometasone Furoate/Formoterol Fumar (Dulera 200/5 Mdi*) 2 puff INH BID KINA Morphine Sulfate (Morphine Inj (Syringe)*) 2 mg IV Q2H PRN Reason: PAIN - MILD Ondansetron HCl (Zofran Inj*) 4 mg IV Q6H PRN Reason: NAUSEA Pantoprazole Sodium (Protonix Iv*) 40 mg IV DAILY [facility] Phenol/Menthol (Chloroseptic Throat [place]*) 2 spray MT Q4H PRN Reason: SORE THROAT Prochlorperazine Edisylate (Compazine Inj*) 10 mg IV Q6H PRN Reason: NAUSEA Tiotropium [place] (Spiriva Cap.Inh*) 1 cap INH DAILY [facility] Vital Signs 10/18/16 10/18/16 10/18/16 10:39 12:20 15:47 Temperature 98.3 F 97.5 F Pulse Rate 75 76 Respiratory 16 18 26 Rate Blood Pressure 144/57 171/66 (mmHg) O2 Sat by Pulse 93 91 Oximetry 10/18/16 10/18/16 10/18/16 19:10 22:19 22:30 Temperature 98.2 F Pulse Rate 84 Respiratory 20 18 18 Rate Blood Pressure 151/67 (mmHg) O2 Sat by Pulse 92 Oximetry 10/18/16 10/18/16 10/19/16 23:49 23:50 00:19 Temperature 98.0 F Pulse Rate 77 Respiratory 16 16 Rate Blood Pressure 123/83 (mmHg) O2 Sat by Pulse 92 92 Oximetry 10/19/16 10/19/16 10/19/16 03:44 04:12 06:02 Temperature 98.6 F Pulse Rate 81 Respiratory 16 18 18 Rate Blood Pressure 151/70 (mmHg) O2 Sat by Pulse 91 Oximetry 10/19/16 10/19/16 10/19/16 07:30 07:44 08:00 Temperature 98.4 F Pulse Rate 70 81 Respiratory 16 16 16 Rate Blood Pressure 154/61 (mmHg) O2 Sat by Pulse 93 91 93 Oximetry 10/19/16 08:04 Temperature Pulse Rate Respiratory Rate Blood Pressure (mmHg) O2 Sat by Pulse 93 Oximetry Oxygen Devices in Use Now: None Appearance: NAD, sitting up in a chair Eyes: No Scleral Icterus Ears/Nose/Mouth/Throat: Mucous Membranes Moist Respiratory: Symmetrical Chest Expansion and Respiratory Effort, Clear to Auscultation Cardiovascular: NL Sounds; No Murmurs; No JVD, RRR Abdominal: - - Bowel sounds present. Abdomen soft, large, tender near incision site Skin: - - Left sided abdominal incision well approximated with jose intact, open to air. Neurological: Alert and Oriented x 3, NL Muscle Strength and Tone Lines/Tubes/Other Access: Clean, Dry and Intact Other Access - ROBBIE drain intact Nutrition: Taking PO's Result Diagrams: 10/18/16 05:35 10/18/16 05:35 Additional Lab and Data: . Microbiology and Other Data: Microbiology 10/16/16 06:10 Nasal Screen MRSA (PCR)(BOLIVAR) - Final Nasal Mrsa Negative Diagnostic Imaging: CT abd/pelvis - SBO, multiple ventral hernias containing small bowel Assess/Plan/Problems-Billing Assessment: Ms. Mayo is a 65 yo female with COPD who presents with abdominal pain and nausea with SBO noted on CT with ventral hernias containing small bowel. Surgery is consulting. - Patient Problems (1) Small bowel obstruction Code(s): K56.69 - OTHER INTESTINAL OBSTRUCTION SNOMED Code(s): 378993362 Comment: - With multiple ventral hernias containing small bowel - POD #4 s/p reduction of hernia and repair with mesh - Passing flatus, bowel sounds present, small BM yesterday - Full liquid diet (2) Leukocytosis Code(s): D72.829 - ELEVATED WHITE BLOOD CELL COUNT, UNSPECIFIED SNOMED Code(s) : 411958650 Comment: - Improved - Denies urinary symptoms and afebrile - Suspect stress response from surgery (3) COPD (chronic obstructive pulmonary disease) Code(s): J44.9 - CHRONIC OBSTRUCTIVE PULMONARY DISEASE, UNSPECIFIED SNOMED Code(s): 59891160 Comment: - No exacerbation - Continue home inhaled medication and prn DuoNebs - Largely non-compliant with inhalers at home (4) Morbid obesity Code(s): E66.01 - MORBID (SEVERE) OBESITY DUE TO EXCESS CALORIES SNOMED Code(s ): 399634990 Comment: BMI 49 (5) HTN (hypertension) Code(s): I10 - ESSENTIAL (PRIMARY) HYPERTENSION SNOMED Code(s): 82357284 Comment: - Normotensive at this time - Continue Lisinopril (6) GERD (gastroesophageal reflux disease) Code(s): K21.9 - GASTRO-ESOPHAGEAL REFLUX DISEASE WITHOUT ESOPHAGITIS SNOMED Code(s): 257050445 Comment: - Continue PPI (7) Hypothyroidism Code(s): E03.9 - HYPOTHYROIDISM, UNSPECIFIED SNOMED Code(s): 93027332 Comment: - Continue Levothyroxine (8) JUANA (obstructive sleep apnea) Code(s): G47.33 - OBSTRUCTIVE SLEEP APNEA (ADULT) (PEDIATRIC) SNOMED Code(s): 89693234 Comment: - Non-compliant with CPAP recommendations at home - Will discharge home with O2 at night - Pulmonology eval outpatient (9) DVT prophylaxis Code(s): HHJ4341 - SNOMED Code(s): 366834360 Comment: - SQ heparin (10) Full code status Code(s): Z78.9 - OTHER SPECIFIED HEALTH STATUS SNOMED Code(s): 990714035 Status and Disposition: Inpatient. Plan for discharge to home today.
[2016-10-19] MEDS: Lisinopril TAB* 10 MG PO SCH (09:48)
[2016-10-19] MEDS: Magnesium Oxide TAB* 400 MG PO SCH (09:48)
[2016-10-19] MEDS: Pantoprazole IV* 40 MG IV SCH (09:51)
--- NOTE | 2016-10-20 06:51 | DS ---
CC: Dr. Hanna; [facility]; Dr. Calvillo DISCHARGE SUMMARY: DATE OF ADMISSION: 10/15/16 DATE OF DISCHARGE: 10/19/16 HISTORY AND HOSPITAL COURSE: Ms. Mayo is a 65-year-old female, who presented to the emergency room on 10/14/16, with complaints of abdominal pain. Workup, which included CT scan and labs, was consi stent with a small bowel obstruction secondary to multiple ventral hernias. The patient was admitte d to the hospitalist service, started on antibiotics for an elevated white blood cell count and [facility] contacted the following morning. I saw the patient in the morning and by the afternoon, patient showed no improvement despite NG tube drainage. We could not reduce the hernia secondary t o patient's size and a decision was made to take her to the operating room for surgical intervention . Please see surgical report for details. Briefly, the patient underwent an open multiple ventral hernia repair with placement of biologic mes h. A right femoral vein triple lumen catheter was also placed at the time of the OR and patient was transferred to the ICU, extubated, where she showed significant improvement in a short course and w as transferred to the floor on postop day 1. She had good urine output. Her Hawkins was discontinued . The patient was started on ice chips. By postoperative day 2, she was moving around, ambulating, but still reporting no flatus, dealing wi th a postoperative ileus and her diet was not advanced at that point. She was followed by the hospi talist service. Her antibiotics had been turned off, and by postoperative day 3 the patient was pas sing flatus and her diet was advanced. She has still not had a bowel movement, but her appetite was improving somewhat and by postoperative day 4, the patient was ready for discharge. At the time of surgery 2 ROBBIE drains were placed in the subcutaneous space, 1 ROBBIE drain was removed on the day of discharge. PHYSICAL EXAMINATION: On the day of discharge, the patient was afebrile. Vital signs were stable. Alert and oriented x3, in no apparent distress. Head, Ears, Eyes, Nose, and Throat: Normocephalic , atraumatic. Sclerae anicteric. Mucous membranes are moist. Lungs: Clear to auscultation bilater ally. Abdomen: Soft, obese, minimal incisional tenderness, dressing removed, staple line intact, w ithout erythema. ROBBIE drain on the left removed without incident. ROBBIE drain on the right remain in pl addison. No evidence of dehiscence at the wound site. Extremities are within normal limits, with no ca lf tenderness. Groin catheter removed and pressure held. There was no erythema at the site. There was no bleeding. IMPRESSION: Postoperative day #4 from ventral hernia repair for small bowel obstruction secondary t o ventral hernia, now with resolution of ileus and small bowel obstruction. PLAN: Plan is for discharge home with ROBBIE drain and jose, with planned followup in our offices ne xt week. The patient understands I will be away and she will be followed by my group. The patient is also has known history of COPD, has been diagnosed with obstructive sleep apnea in e past. The hospitalist service set her up for an overnight oxygen study, showed evidence of apnea, and for this reason, we want to send the patient to Pulmonology as a outpatient. She will likely b enefit from treatment for sleep apnea and she wishes to go in that direction now; she had been reluc tant in the past. The patient is also noted to have low oxygen levels and is setup for home oxygen therapy through the hospitalist service as well. [id number]/[facility] #: [id number]
== END 2016-10-19 12:20 | disposition home health service (06) | DRG 227 ==
LOC: ED 17:27 → SSU 10-15 00:28 → OBSVTOIN 10-15 09:02 → ICU 10-15 23:09 → SSU 10-16 13:47
PROVIDERS: ADMIT Hospitalist; ATTEND Internal Medicine
PROC: 0D9670Z Drainage of Stomach with Drainage Device, Via Natural or Artificial Opening (ICD-10-PCS; principal; 2016-10-15 19:02)
PROC: 06HM33Z Insertion of Infusion Device into Right Femoral Vein, Percutaneous Approach (ICD-10-PCS; 2016-10-18)
PROC: 0WUF0JZ Supplement Abdominal Wall with Synthetic Substitute, Open Approach (ICD-10-PCS; 2016-10-18)
PROC: 0DNE0ZZ Release Large Intestine, Open Approach (ICD-10-PCS; 2016-10-18)
DX: K43.6 Other and unspecified ventral hernia with obstruction, without gangrene (principal); Z68.42 Body mass index [BMI] 45.0-49.9, adult; Z99.81 Dependence on supplemental oxygen; M41.9 Scoliosis, unspecified; E66.01 Morbid (severe) obesity due to excess calories; I10 Essential (primary) hypertension; K21.9 Gastro-esophageal reflux disease without esophagitis; E03.9 Hypothyroidism, unspecified; J44.9 Chronic obstructive pulmonary disease, unspecified; M19.90 Unspecified osteoarthritis, unspecified site; G47.33 Obstructive sleep apnea (adult) (pediatric); D72.829 Elevated white blood cell count, unspecified; F10.21 Alcohol dependence, in remission; Z88.1 Allergy status to other antibiotic agents; Z88.2 Allergy status to sulfonamides; Z88.5 Allergy status to narcotic agent; Z88.8 Allergy status to other drugs, medicaments and biological substances; Z91.040 Latex allergy status; Z90.49 Acquired absence of other specified parts of digestive tract; Z90.710 Acquired absence of both cervix and uterus; Z83.1 Family history of other infectious and parasitic diseases; Z83.49 Family history of other endocrine, nutritional and metabolic diseases; Z85.43 Personal history of malignant neoplasm of ovary; Z82.49 Family history of ischemic heart disease and other diseases of the circulatory system; Z81.1 Family history of alcohol abuse and dependence; Z87.891 Personal history of nicotine dependence; Z91.19 Patient's noncompliance with other medical treatment and regimen
CPT/HCPCS: 36415; 71010; 74020; 74176; 80048; 80053; 81003; 82330; 83605; 83690; 83735; 85025; 86140; 87040; 87086; 87641; 93005; 94640; 94760; 94762; A9270-GY; C1776; G0378; J0330; J0610; J0690; J1100; J1170; J1644; J1885; J2060; J2250; J2270; J2405; J2543; J2704; J3010; Q4100

== ENCOUNTER → 2017-07-21 16:40 | Emergency (ER) | payer BC, MEDICARE ==
[~2017-07-21 16:40] MED LIST: Albuterol 2.5 MG/3 ML NEB.SOL* (0.083%) INH ONE; Iohexol 350* (CONTRAST) 500 ML MDV IV ONE; diPHENhydraMINE IV* 50 MG/ML 1 ml VIAL (BENADRYL) IV ONE; methylPREDNISolone 125 MG* 2 ML VIAL IV ONE
[2017-07-21 17:15] LABS: ABS Basophils 0.1 10^3/ul (0-0.2); ABS Eosinophils 0.1 10^3/ul (0-0.6); ABS Lymphocytes 2.3 10^3/ul (1.0-4.8); ABS Monocytes 0.5 10^3/ul (0-0.8); ABS Neutrophils 5.9 10^3/ul (1.5-7.7); ABS Nucleated RBC 0 10^3/ul; Eosinophil % 1.5 % (0-6); Hematocrit 40 % (35-47); Lymphocyte % 25.7 % (25-47); Mean Corpuscular HGB Conc 33 g/dl (31-36); Mean Corpuscular Hemoglobin 29 pg (27-31); Mean Corpuscular Volume 87 fL (80-97); Mean Platelet Volume 8 um3 (7.4-10.4); Nucleated Red Blood Cells % 0.1; Platelet Count 270 10^3/ul (150-450); Red Blood Count 4.55 10^6/ul (4.0-5.4); Red Cell Distribution Width 14 % (10.5-15); White Blood Count 8.8 10^3/ul (3.5-10.8)
--- NOTE | 2017-07-21 17:27 | RAD ---
Indication: Shortness of breath. 2 views of the chest including dual energy PA views demonstrate no mediastinal shift. Heart is of normal size and configuration. Lung ruano are clear. IMPRESSION: No active cardiopulmonary disease is noted.
--- NOTE | 2017-07-21 21:06 | RAD ---
Indication: Shortness of breath, wheezing. Contrast: Administered 83.0 ml of OMNIPAQUE 350 mg/ml CTA of the chest was performed after IV contrast demonstration. Coronal and sagittal reconstructed images were obtained. The pulmonary arterial tree is well opacified. There are no filling defects present to suggest pulmonary embolus. The aorta demonstrates atherosclerosis without aneurysmal dilatation or aortic dissection. Inferior thyroid lobes are not well demonstrated. Prevascular space lymph node is noted measuring 2.6 x 1.1 cm. This was present on prior exam of November 24, 1713. Additional prevascular space lymph nodes measure up to 6 mm. Precarinal lymph nodes measure up to 13 mm. AP window lymph node measures up to 8 mm. The trachea and major bronchi appear patent. Bibasilar atelectasis is noted. No alveolar consolidation is noted. There is suggestion of prominent vascular markings and the possibility of CHF should be considered. The visualized abdominal organs are otherwise unremarkable. IMPRESSION: No evidence of pulmonary embolus is noted. Small mediastinal lymph nodes which are essentially unchanged from November 24, 1713.
[2017-07-21 23:02] VITALS: BP 170/74
--- NOTE | 2017-07-22 02:56 | ED ---
Tanya Hannah Julia, scribed for Belén Fuentes MD on 07/21/17 at 1838 . Shortness of Breath - HPI Summary HPI Summary: This patient is a 66 year old F BIBA to [facility] accompanied by her with a chief complaint of 6 episodes of SOB with constant asthmatic symptoms for past two weeks. Patient reports chills, sweats, cough with sputum, and calf cramps. Patient denies pain, fever, flu, or chest pain. Patient has hx or asthma , COPD, PNA, and "chemical burn" to the lungs. Patient has at home O2 and CPAP but rarely uses it for her sleep apnea. She rarely uses nebulizer but used twice today and yesterday. Patient is magnesium and potassium deficient. Patient is currently taking Spiriva, advair and Ventolin to manage her asthma/ COPD. She has had her flu shot but not a PNA shot. 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 - Onset/Duration: Gradual Onset, Lasting Weeks Timing: Constant - with worsening episodes Current Severity: Mild Aggrevating Factors: Nothing Alleviating Factors: Bronchodilators Associated Signs & Symptoms: Cough (Productive), Wheezing, Chest Pain w/Cough, Chills, Calf Pain/Swelling Related History: Obesity - Allergy/Home Medications Allergies/Adverse Reactions: Allergies Allergy/AdvReac Type Severity Reaction Status Date / Time Adhesive Tape Allergy Blisters Verified 10/14/16 17:38 Latex Allergy Blisters Verified 10/14/16 17:38 Levofloxacin [From Levaquin] Allergy Rash Verified 10/14/16 17:38 Sulfa Antibiotics Allergy Unknown Verified 10/14/16 17:38 Reaction Details Acetaminophen [From Percocet] AdvReac Vomiting Verified 10/14/16 17:38 Hydrocodone [From Vicodin] AdvReac Vomiting Verified 10/14/16 17:38 Oxycodone [From Percocet] AdvReac Vomiting Verified 10/14/16 17:38 PMH/Surg Hx/FS Hx/Imm Hx Previously Healthy: No Endocrine/Hematology History: Reports: Hx Thyroid Disease - hypothyroid Denies: Hx Diabetes Cardiovascular History: Reports: Hx Hypertension Respiratory History: Reports: Hx Asthma, Hx Chronic Obstructive Pulmonary Disease (COPD), Hx Pneumonia, Hx Sleep Apnea - no bipap/cpap GI History: Reports: Hx Gastroesophageal Reflux Disease, Hx Hiatal Hernia, Other GI Disorders - Clarisse, Musculoskeletal History: Reports: Hx Arthritis, Other Musculoskeletal History - scoliosis Sensory History: Reports: Hx Contacts or Glasses Denies: Hx Hearing Aid Opthamlomology History: Reports: Hx Contacts or Glasses - Cancer History Cancer Type, Location and Year: ovarian CA Hx Chemotherapy: No - Surgical History Surgery Procedure, Year, and Place: Cholecystectomy. appendectomy, herniorrhaphy. tonsilectomy, total hysterectomy at age 27, removal of adhesions. Right arm tendon repair. Rhinoplasty, hernia repair. Cyst removal from sinus. 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 [employer] Lives: With Family Alcohol Use: None Hx Substance Use: No Substance Use Type: Reports: None Hx Tobacco Use: Yes Smoking Status (MU): Former Smoker Type: Cigarettes Amount Used/How Often: 1 ppd Length of Time of Smoking/Using Tobacco: 40+ years Have You Smoked in the Last Year: Yes Review of Systems Positive: Chills Cardiovascular: Negative Positive: Shortness Of Breath, Cough Gastrointestinal: Negative Positive: Edema - with calf cramping Skin: Negative Neurological: Negative Psychological: Normal All Other Systems Reviewed And Are Negative: Yes Physical Exam - Summary Physical Exam Summary: Appearance: Ill-appearing, moderate pain distress, morbidly obese Skin: Warm, color reflects adequate perfusion Head: Normal Head/Face inspection Eyes: Conjunctiva clear ENT: Normal inspection Neck: Supple, no nodes, no JVD. Respiratory: Lungs clear, Normal breath sounds, but unable to take deep breath without coughing Cardio: RRR, No murmur, pulses normal, brisk capillary refill Abdomen: soft, nontender Bowel sounds: present Musculoskeletal: Strength Intact/ ROM intact. No calf tenderness. LE edema. Neuro: Alert, muscle tone normal, facial symmetry, speech normal, sensory/motor intact Psychological: Normal Triage Information Reviewed: Yes Vital Signs On Initial Exam: Initial Vitals Temp Pulse Resp BP Pulse Ox 98.1 F 80 16 148/60 96 07/21/17 16:43 07/21/17 16:43 07/21/17 16:43 07/21/17 16:43 07/21/17 16:43 Vital Signs Reviewed: Yes - [place] Coma Scale Coma Scale Total: 15 Diagnostics - Vital Signs Vital Signs Temp Pulse Resp BP Pulse Ox 07/21/17 17:18 167/128 07/21/17 17:09 80 20 96 07/21/17 17:00 82 20 150/63 97 07/21/17 16:49 83 17 98 07/21/17 16:48 148/60 07/21/17 16:43 98.1 F 80 16 148/60 96 - Laboratory Lab Results: Lab Results 07/21/17 07/21/17 07/21/17 Range/Units 17:05 17:05 17:05 WBC 8.8 (3.5-10.8) 10^3/ul RBC 4.55 (4.0-5.4) 10^6/ul Hgb 13.0 (12.0-16.0) g/dl Hct 40 (35-47) % MCV 87 (80-97) fL MCH 29 (27-31) pg MCHC 33 (31-36) g/dl RDW 14 (10.5-15) % Plt Count 270 (150-450) 10^3/ul MPV 8 (7.4-10.4) um3 Neut % (Auto) 66.5 (38-83) % Lymph % (Auto) 25.7 (25-47) % Barron % (Auto) 5.6 (1-9) % Eos % (Auto) 1.5 (0-6) % Baso % (Auto) 0.7 (0-2) % Absolute Neuts (auto) 5.9 (1.5-7.7) 10^3/ul Absolute Lymphs (auto) 2.3 (1.0-4.8) 10^3/ul Absolute Monos (auto) 0.5 (0-0.8) 10^3/ul Absolute Eos (auto) 0.1 (0-0.6) 10^3/ul Absolute Basos (auto) 0.1 (0-0.2) 10^3/ul Absolute Nucleated RBC 0 10^3/ul Nucleated RBC % 0.1 Sodium 139 (133-145) mmol/L Potassium 3.5 (3.5-5.0) mmol/L Chloride 106 (101-111) mmol/L Carbon Dioxide 24 (22-32) mmol/L Anion Gap 9 (2-11) mmol/L BUN 15 (6-24) mg/dL Creatinine 0.91 (0.51-0.95) mg/dL Est GFR ( Amer) 79.8 (>60) Est GFR (Non-Af Amer) 62.0 (>60) BUN/Creatinine Ratio 16.5 (8-20) Glucose 112 H (70-100) mg/dL Lactic Acid 2.0 (0.5-2.0) mmol/L Calcium 9.1 (8.6-10.3) mg/dL Total Bilirubin 0.20 (0.2-1.0) mg/dL AST 19 (13-39) U/L ALT 20 (7-52) U/L Alkaline Phosphatase 70 (34-104) U/L Troponin I 0.00 (<0.04) ng/mL Total Protein 6.7 (6.4-8.9) g/dL Albumin 4.1 (3.2-5.2) g/dL Globulin 2.6 (2-4) g/dL Albumin/Globulin Ratio 1.6 (1-3) Result Diagrams: 07/21/17 17:05 07/21/17 17:05 Lab Statement: Any lab studies that have been ordered have been reviewed, and results considered in the medical decision making process. - Radiology CXR Radiology Interpretation Completed By: Radiologist - NAD - CT Chest/Thorax CT Interpretation Completed By: Radiologist - No evidence of pulmonary embolus is noted. Small mediastinal lymph nodes which are essentially unchanged from November 24, 1713. ED Physician has reviewed this report. - EKG 18:54 Cardiac Rate: NL EKG Rhythm: Sinus Rhythm - at [address] Segment: Non-Specific Ectopy: None EKG Interpretation: nml AVIVCT nml QTc nml axis, low volatge in precordial leads EKG Comparison: No Significant Change - 10/14/16 Re-Evaluation - Re-Evaluation First Eval Re-Evaluation Time: 18:40 Change: Unchanged - informed of elevated d dimer and plan for CTA chest Second Eval Re-Evaluation Time: 22:00 Change: Improved - given results of CTA, agrees to DC Course/Dx - Course Course Of Treatment: Pt with hx COPD, with increasing SOB x 2 weeks. No chest pain. Influenza swab neg. d- dimer significantly elevated. CTA chest without PE or infiltrate. Will DC with dx bronchitis and COPD exacerbation. Pt and her agree to discharge. - Diagnoses Differential Diagnosis/HQI/PQRI: Positive: Asthma, Bronchitis, CHF, Pneumonia, Pulmonary Embolism, Pulmonary Edema Provider Diagnoses: COPD exacerbation, Acute bronchiolitis Discharge - Discharge Plan Condition: Stable Disposition: HOME Prescriptions: Albuterol 2.5MG/3ML (0.083%)* [Ventolin 2.5 MG/3 ML NEB.SABINA*] 2.5 mg INH Q4H # 50 neb.sabina Azithromycin TAB* [Zithromax TAB (Z-BARBER) 250 mg #6 tabs] 2 tab PO .TODAY, THEN 1 DAILY #1 barber predniSONE TAB* [Deltasone TAB*] 10 mg PO DAILY #30 tab Patient Education Materials: Acute Bronchitis (ED), COPD (Chronic Obstructive Pulmonary Disease) (ED) Forms: *Work Release Referrals: Guillermina Hanna MD [Primary Care Provider] - 2 Days The documentation as recorded by the Tanya tom Julia accurately reflects the service I personally performed and the decisions made by , Belén Fuentes MD.
== END | disposition home or self-care (01) ==
LOC: ED 16:40
DX: J44.1 Chronic obstructive pulmonary disease with (acute) exacerbation (principal); J20.9 Acute bronchitis, unspecified; J44.0 Chronic obstructive pulmonary disease with (acute) lower respiratory infection; Z87.891 Personal history of nicotine dependence; R06.02 Shortness of breath; R05 Cough; R06.2 Wheezing; R07.9 Chest pain, unspecified
CPT/HCPCS: 36415; 71046; 71275; 80053; 83605; 83880; 84484; 85025; 85379; 87040; 93005; 94640; 96374; 96375; 99284; J1200; J2930; Q9967

== ENCOUNTER 2018-12-17 11:49 | Emergency (ER) | payer MEDICARE, BC ==
--- NOTE | 2018-12-17 12:03 | ED ---
Lower Extremity - HPI Summary HPI Summary: Patient is a 68 y/o F presenting to ED with complaints of right knee injury. She states that she was getting into her truck when its running board broke. Patient fell as a result and struck her right knee. She reports pain from her right knee radiating downwards. No other injuries are reported. Movement is noted to aggravate pain. 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 Home medications and allergies are reviewed. - History of Current Complaint Stated Complaint: RIGHT KNEE PAIN Time Seen by Provider: 12/17/18 11:53 Hx Obtained From: Patient Mechanism Of Injury: Fall From Height Of: - running board on truck Onset of Pain: Prior to Arrival Onset/Duration: Still Present Severity Currently: Moderate Pain Intensity: 6 Pain Scale Used: 0-10 Numeric Timing: Constant Location: Is Discrete @ - right leg Associated Signs And Symptoms: Positive: Knee Pain - right, Other - right knee pain radiating downwards Aggravating Factor(s): Movement Alleviating Factor(s): Nothing - Allergies/Home Medications Allergies/Adverse Reactions: Allergies Allergy/AdvReac Type Severity Reaction Status Date / Time Adhesive Tape Allergy Blisters Verified 10/14/16 17:38 MS Latex [Latex] Allergy Blisters Verified 10/14/16 17:38 MS Levofloxacin Allergy Rash Verified 10/14/16 17:38 [From Levaquin] MS Sulfa Antibiotics Allergy Unknown Verified 10/14/16 17:38 [Sulfa Antibiotics] Reaction Details MS Acetaminophen AdvReac Vomiting Verified 10/14/16 17:38 [From Percocet] MS Hydrocodone [From Vicodin] AdvReac Vomiting Verified 10/14/16 17:38 MS Oxycodone [From Percocet] AdvReac Vomiting Verified 10/14/16 17:38 PMH/Surg Hx/FS Hx/Imm Hx Endocrine/Hematology History: Reports: Hx Thyroid Disease - hypothyroid Denies: Hx Diabetes Cardiovascular History: Reports: Hx Hypertension Respiratory History: Reports: Hx Asthma, Hx Chronic Obstructive Pulmonary Disease (COPD), Hx Pneumonia, Hx Sleep Apnea - no bipap/cpap, Other Respiratory Problems/Disorders - COPD GI History: Reports: Hx Gastroesophageal Reflux Disease, Hx Hiatal Hernia, Other GI Disorders - Clarisse, History: Denies: Hx Renal Disease Musculoskeletal History: Reports: Hx Arthritis, Other Musculoskeletal History - scoliosis Sensory History: Reports: Hx Contacts or Glasses Denies: Hx Hearing Aid Opthamlomology History: Reports: Hx Contacts or Glasses Psychiatric History: Reports: Hx Substance Abuse - Cancer History Cancer Type, Location and Year: ovarian CA Hx Chemotherapy: No - Surgical History Surgery Procedure, Year, and Place: Cholecystectomy. appendectomy, herniorrhaphy. tonsilectomy, total hysterectomy at age 27, removal of adhesions. Right arm tendon repair. Rhinoplasty, hernia repair. Cyst removal from sinus. SMALL INTESTINE BLOCKAGE REPAIRED Hx Anesthesia Reactions: No - Family History Known Family History: Positive: Other - BROTHER - DYSLIPIDEMIA, HIV, mother - hysterectomy - Social History Alcohol Use: None Hx Substance Use: No Substance Use Type: Reports: None Hx Tobacco Use: Yes Smoking Status (MU): Former Smoker Type: Cigarettes Amount Used/How Often: 1 ppd Length of Time of Smoking/Using Tobacco: 40+ years Have You Smoked in the Last Year: Yes Review of Systems Negative: Fever - on vitals, temp is 97.5 F Musculoskeletal: Other - positive - RLE pain All Other Systems Reviewed And Are Negative: Yes Physical Exam - Summary Physical Exam Summary: VITAL SIGNS: Reviewed. GENERAL: Patient is a well-developed and nourished female who is lying comfortable in the stretcher. Patient is not in any acute respiratory distress. HEAD AND FACE: No signs of trauma. No ecchymosis, hematomas or skull depressions. No sinus tenderness. EYES: PERRLA, EOMI x 2, No injected conjunctiva, no nystagmus. EARS: Hearing grossly intact. Ear canals and tympanic membranes are within normal limits. MOUTH: Oropharynx within normal limits. NECK: Supple, trachea is midline, no adenopathy, no JVD, no carotid bruit, no c- spine tenderness, neck with full ROM. CHEST: Symmetric, no tenderness at palpation LUNGS: Clear to auscultation bilaterally. No wheezing or crackles. CVS: Regular rate and rhythm, S1 and S2 present, no murmurs or gallops appreciated. ABDOMEN: Soft, non-tender. No signs of distention. No rebound no guarding, and no masses palpated. Bowel sounds are normal. EXTREMITIES: Decreased ROM of right knee, tenderness at proximal aspect of tib- fib. Patient is neurovascularly intact, no edema, no cyanosis or clubbing. NEURO: Alert and oriented x 3. No acute neurological deficits. Speech is normal and follows commands. SKIN: Dry and warm. Triage Information Reviewed: Yes Vital Signs On Initial Exam: Initial Vitals Temp Pulse Resp BP Pulse Ox 97.5 F 73 16 161/69 97 12/17/18 12:04 12/17/18 12:04 12/17/18 12:04 12/17/18 12:04 12/17/18 12:04 Vital Signs Reviewed: Yes Diagnostics - Laboratory Lab Statement: Any lab studies that have been ordered have been reviewed, and results considered in the medical decision making process. - Radiology RIGHT TIBIA FIBIA X-RAY Radiology Interpretation Completed By: Radiologist Summary of Radiographic Findings: RIGHT TIBIA FIBIA X-RAY IMPRESSION: SOFT TISSUE SWELLING, NO FRACTURE IS SEEN. THIS REPORT WAS REVIEWED BY DR. ARGUELLO. RIGHT KNEE X-RAY Radiology Interpretation Completed By: Radiologist Summary of Radiographic Findings: RIGHT KNEE X-RAY IMPRESSION: NO EVIDENCE FOR FRACTURE. THIS REPORT WAS REVIEWED BY DR. ARGUELLO. Re-Evaluation - Re-Evaluation First Eval Re-Evaluation Time: 14:48 Comment: X-rays were discussed with the patient. She will be discharged to home and follow up with PCP and ortho. Strict return precautions given. Patient agreeable with discharge. Lower Extremity Course/Dx - Course Assessment/Plan: Patient is a 68 y/o F presenting to ED with complaints of right knee injury. She states that she was getting into her truck when its running board broke. Patient fell as a result and struck her right knee. She reports pain from her right knee radiating downwards. No other injuries are reported. Movement is noted to aggravate pain. Knee x ray IMPRESSION: NO EVIDENCE FOR FRACTURE. Tib Fib X ray IMPRESSION: SOFT TISSUE SWELLING, NO FRACTURE IS SEEN. Patient was given Toradol IM and [place] for pain. The patient was placed in the knee immobilizer and the patient was discharged home with follow-up with primary care physician and orthopedics. - Diagnoses Provider Diagnoses: Knee pain, acute Discharge - Sign-Out/Discharge Documenting (check all that apply): Patient Departure - discharge Patient Received Moderate/Deep Sedation with Procedure: No - Discharge Plan Condition: Stable Disposition: HOME Patient Education Materials: Knee Pain (ED) Referrals: Guillermina Hanna MD [Primary Care Provider] - 3 Days Vidhya Bradford MD [Medical Doctor] - 3 Days Additional Instructions: PLEASE RETURN TO ED FOR ANY CHANGING OR WORSENING SYMPTOMS. FOLLOW UP WITH YOUR PRIMARY CARE PHYSICIAN, ORTHOPEDICS WITHIN THREE DAYS. - Billing Disposition and Condition Condition: STABLE Disposition: Home - Attestation Statements Document Initiated by Vargheseibe: Yes Documenting Scribe: LANIE ROCK Provider For Whom Vargheseibe is Documenting (Include Credential): FABIO ARGUELLO MD Scribe Attestation: I, LANIE ROCK, scribed for FABIO ARGUELLO MD on 12/17/18 at 2142. Scribe Documentation Reviewed: Yes Provider Attestation: The documentation as recorded by the LANIE tom accurately reflects the service I personally performed and the decisions made by me, FABIO ARGUELLO MD Status of Scribe Document: Viewed
[2018-12-17] MEDS ORDERED: Ketorolac INJ* 60 MG/2 ML VIAL IM ONE (14:02)
[2018-12-17] MEDS ORDERED: HYDROcodone/ACETAMIN 5-325 MG* 1 TAB PO ONE (14:02)
[2018-12-17 15:15] VITALS: BP 158/69
== END 2018-12-17 15:13 | disposition home or self-care (01) ==
LOC: ED 11:49
DX: M25.561 Pain in right knee (principal); J44.9 Chronic obstructive pulmonary disease, unspecified; Z88.6 Allergy status to analgesic agent; Z88.1 Allergy status to other antibiotic agents; Z91.040 Latex allergy status; Z88.5 Allergy status to narcotic agent; Z88.2 Allergy status to sulfonamides; Z91.048 Other nonmedicinal substance allergy status; Z87.891 Personal history of nicotine dependence
CPT/HCPCS: 96372; 99282; J1885

== ENCOUNTER 2020-12-31 21:41 | Observation (INO) ==
[2020-12-31] MEDS ORDERED: methylPREDNISolone 125 mg 2 ML VIAL IV ONE (21:52)
[2020-12-31] MEDS ORDERED: Albuterol/Ipratropium NEB.SOL (2.5/0.5 MG) 3 ML NEB.SOLN INH ONE (22:45)
[2021-01-01 00:25] LABS: ABS Basophils 0.1 10^3/ul (0-0.2); ABS Eosinophils 0.1 10^3/ul (0-0.6); ABS Lymphocytes 2.3 10^3/ul (1.0-4.8); ABS Monocytes 0.7 10^3/ul (0-0.8); ABS Neutrophils 7.3 10^3/ul (1.5-7.7); Eosinophil % 0.9 %; Hematocrit 38 % (35-47); Hemoglobin 12.6 g/dL (12.0-16.0); Lymphocyte % 21.9 %; Mean Corpuscular HGB Conc 33 g/dL (31-36); Mean Corpuscular Hemoglobin 28 pg (27-31); Mean Corpuscular Volume 84 fL (80-97); Mean Platelet Volume 8.4 fL (7.4-10.4); Platelet Count 256 10^3/uL (150-450); Red Blood Count 4.53 10^6 /uL (3.70-4.87); Red Cell Distribution Width 14 % (10-15); White Blood Count 10.4 10^3/uL (3.5-10.8)
[2021-01-01 00:42] LABS: Potassium 3.5 mmol/L (3.5-5.0)
[2021-01-01 00:43] LABS: Albumin 3.7 g/dL (3.2-5.2); Albumin/Globulin Ratio 1.5 (1-3); Calcium 8.6 mg/dL (8.6-10.3); EGFR African American 95.6 (>60); Globulin 2.5 g/dL (2-4); Total Bilirubin 0.2 mg/dL (0.2-1.0); Total Protein 6.2 g/dL (6.4-8.9)
[2021-01-01 00:44] LABS: Troponin I 0.01 ng/mL (<0.03)
[2021-01-01] MEDS ORDERED: Iodixanol (CONTRAST) 320 MG/ML 100 ML SDV IV ONE (04:40)
[2021-01-01] MEDS ORDERED: Heparin 5000 UNITS/ML 1 mL VIAL SUBCUT SCH (14:00)
[2021-01-01] MEDS ORDERED: Albuterol HFA INHALER 8 gm MDI INH PRN (17:11)
[2021-01-01] MEDS ORDERED: Albuterol 2.5mg/3 ml (0.083%) NEB.SOLN INH SCH ×2 (18:00→19:00)
[2021-01-01] MEDS ORDERED: Albuterol/Ipratropium RESP(NF) MDI (Combivent Respimat) INH SCH (21:00)
[2021-01-01] MEDS: Amoxicillin/Clavul 875/125 TAB (Augmentin 875 tab) PO SCH (21:20)
[2021-01-01] MEDS: Albuterol 2.5mg/3 ml (0.083%) NEB.SOLN INH SCH (23:50)
[2021-01-02] MEDS: Albuterol 2.5mg/3 ml (0.083%) NEB.SOLN INH SCH ×2 (02:50→07:11)
[2021-01-02] MEDS ORDERED: Fluticasone NASAL SPRAY 50MCG 16 gm SPRAY BTL INTRANASAL SCH (09:00)
[2021-01-02] MEDS ORDERED: SPIRIVA Respimat (tiotropium) 2.5 mcg/inh Inhaler INH SCH (09:00)
[2021-01-02 10:01] VITALS: BP 139/59
[2021-01-02] MEDS: Amoxicillin/Clavul 875/125 TAB (Augmentin 875 tab) PO SCH (10:04)
== END 2021-01-02 10:50 | disposition home or self-care (01) ==
LOC: ED 21:41 → MEDTELE 21:41
PROVIDERS: ADMIT Hospitalist; ATTEND Hospitalist

== ENCOUNTER 2021-12-05 11:33 | Observation (INO) ==
[~2021-12-05 11:33] MED LIST changes: -Albuterol 2.5 MG/3 ML NEB.SOL* (0.083%) INH ONE; +Buffered Lidocaine 1% SYRIN 1 ml INTRADERM ONE; -Iohexol 350* (CONTRAST) 500 ML MDV IV ONE; +Lactated Ringers 1000 ml BAG 1,000 ML IV SCH; -diPHENhydraMINE IV* 50 MG/ML 1 ml VIAL (BENADRYL) IV ONE; -methylPREDNISolone 125 MG* 2 ML VIAL IV ONE
[2021-12-05] MEDS ORDERED: Propofol 10 MG/ML 20 ML BTL ONE ×3 (11:56→15:24)
[2021-12-05] MEDS ORDERED: ceFAZolin 2 GM in NS PREMIX 2 GM/100 ML BAG IVPB ONE (12:03)
[2021-12-05] MEDS ORDERED: Levalbuterol 1.25MG/0.5ML NEB.SOL ONE (13:20)
[2021-12-05] MEDS ORDERED: Lidocaine 1% MPF 5 ML VIAL ONE ×2 (13:23→13:35)
[2021-12-05] MEDS ORDERED: Rocuronium 50 mg VIAL 10 mg/ml 5 ml VIAL (50 mg) ONE ×2 (13:23→14:27)
[2021-12-05] MEDS ORDERED: Bupivacaine 0.5% SDV PF 30ML VIAL ONE (13:23)
[2021-12-05] MEDS ORDERED: fentaNYL 250 mcg/5 ml 50 MCG/ML 5 ml VIAL (250 MCG) ONE (13:25)
[2021-12-05] MEDS ORDERED: Levalbuterol 1.25MG/0.5ML NEB.SOL INH ONE (13:26)
[2021-12-05] MEDS ORDERED: Ketamine HCL 50 mg/ml 10 ml VIAL (500 MG) ONE (14:26)
[2021-12-05] MEDS ORDERED: Ropivacaine 0.2% 2 MG/ML VIAL ONE (14:37)
[2021-12-05] MEDS ORDERED: Bupivacaine 0.5% PF 10 ML SDV VIAL INJ ONE (14:45)
[2021-12-05] MEDS ORDERED: ceFAZolin VIAL VIAL ONE (14:53)
[2021-12-05] MEDS ORDERED: Lactulose 30 ml UDC PO PRN (15:03)
[2021-12-05] MEDS ORDERED: Ondansetron ODT 4 mg TAB 4 MG TAB PO PRN (15:03)
[2021-12-05] MEDS ORDERED: Morphine 2 MG/ML SYRINGE IV PRN (15:03)
[2021-12-05] MEDS ORDERED: Magnesium Hydroxide LIQ 30 ML UDC PO PRN (15:03)
[2021-12-05] MEDS ORDERED: Albuterol HFA INHALER 8 gm MDI INH PRN (15:08)
[2021-12-05] MEDS ORDERED: Albuterol/Ipratropium NEB.SOL (2.5/0.5 MG) 3 ML NEB.SOLN INH PRN (15:08)
[2021-12-05] MEDS ORDERED: Sterile Water for Inj 10 ML ONE (15:16)
[2021-12-05] MEDS ORDERED: Labetalol IV 5 MG/ML 20 ml VIAL ONE ×2 (15:22→18:41)
[2021-12-05] MEDS ORDERED: hydrALAZINE 20 mg/ml 1 ML Vial IV ONE (15:31)
[2021-12-05] MEDS ORDERED: Sugammadex 500 MG/5 ML 5 ml VIAL IV PUSH ONE (15:37)
[2021-12-05] MEDS ORDERED: Acetaminophen IV 1 GM/100ML 100 ML IV ONE (15:40)
[2021-12-05] MEDS ORDERED: Lactated Ringers 1000 ml BAG 1,000 ML IV SCH (16:00)
[2021-12-05] MEDS ORDERED: Albuterol/Ipratropium RESP(NF) MDI (Combivent Respimat) INH SCH (16:00)
[2021-12-05] MEDS: fentaNYL 100 mcg/2 ml 50 MCG/ML VIAL IV PRN ×4 (17:40→17:55)
[2021-12-05] MEDS ORDERED: fentaNYL 100 mcg/2 ml 50 MCG/ML VIAL ONE (17:47)
[2021-12-05] MEDS ORDERED: Ondansetron 4 mg VIAL 2 MG/ML 2 ml VIAL IV PRN (17:47)
[2021-12-05] MEDS ORDERED: Naloxone 0.4 mg VIAL 0.4 mg/ml 1 ml VIAL IV PRN (17:47)
[2021-12-05] MEDS ORDERED: Metoclopramide 5 MG/ML VIAL (10 mg) IV PRN (17:47)
[2021-12-05] MEDS ORDERED: Morphine 4 MG/ML VIAL (1 ml) IV PRN (17:47)
[2021-12-05] MEDS: Magnesium Hydroxide LIQ 30 ML UDC PO SCH (21:21)
[2021-12-05] MEDS: Ondansetron 4 mg VIAL 2 MG/ML 2 ml VIAL IV PRN (21:47)
[2021-12-05 22:07] LABS: ABS Basophils 0.1 10^3/ul (0-0.2); ABS Lymphocytes 1.3 10^3/ul (1.0-4.8); ABS Monocytes 0.6 10^3/ul (0-0.8); ABS Neutrophils 14.7 10^3/ul (1.5-7.7); Hematocrit 34 % (35-47); Hemoglobin 10.9 g/dL (12.0-16.0); Mean Corpuscular HGB Conc 33 g/dL (31-36); Mean Corpuscular Hemoglobin 28 pg (27-31); Mean Corpuscular Volume 87 fL (80-97); Mean Platelet Volume 7.4 fL (7.4-10.4); Platelet Count 287 10^3/uL (150-450); Red Blood Count 3.87 10^6 /uL (3.70-4.87); Red Cell Distribution Width 15 % (10-15); White Blood Count 16.6 10^3/uL (3.5-10.8)
[2021-12-05 22:39] LABS: Albumin 3.5 g/dL (3.2-5.2); Albumin/Globulin Ratio 1.6 (1-3); Calcium 8.1 mg/dL (8.6-10.3); Globulin 2.2 g/dL (2-4); Total Bilirubin 0.3 mg/dL (0.2-1.0); Total Protein 5.7 g/dL (6.4-8.9); eGFR CKD-EPI 75.8 (>60)
[2021-12-05 22:55] LABS: TSH Ultra Thyroid Stim Horm 1.18 mcIU/mL (0.34-5.60)
[2021-12-05 22:58] LABS: Free T4 1.51 ng/dL (0.61-1.12)
[2021-12-06] MEDS: ceFAZolin 1 GM ADVAN 1 GM in NS 0.9% 50 ML 50 ML IVPB SCH ×3 (01:28→16:17)
[2021-12-06] MEDS: Albuterol/Ipratropium RESP(NF) MDI (Combivent Respimat) INH SCH ×4 (01:31→22:15)
[2021-12-06 06:34] LABS: ABS Lymphocytes 1.7 10^3/ul (1.0-4.8); ABS Monocytes 0.7 10^3/ul (0-0.8); ABS Neutrophils 11.1 10^3/ul (1.5-7.7); Eosinophil % 0.2 %; Hematocrit 33 % (35-47); Hemoglobin 10.6 g/dL (12.0-16.0); Lymphocyte % 12.5 %; Mean Corpuscular HGB Conc 32 g/dL (31-36); Mean Corpuscular Hemoglobin 28 pg (27-31); Mean Corpuscular Volume 88 fL (80-97); Mean Platelet Volume 8.8 fL (7.4-10.4); Platelet Count 231 10^3/uL (150-450); Red Blood Count 3.75 10^6 /uL (3.70-4.87); Red Cell Distribution Width 14 % (10-15); White Blood Count 13.6 10^3/uL (3.5-10.8)
[2021-12-06 06:46] LABS: Blood Urea Nitrogen 18 mg/dL (6-24); CO2 Carbon Dioxide 24 mmol/L (22-32); Calcium 7.8 mg/dL (8.6-10.3); Chloride 100 mmol/L (101-111); Glucose 160 mg/dL (70-100); Sodium 134 mmol/L (135-145)
[2021-12-06 07:44] LABS: Anion Gap 10 mmol/L (2-11)
[2021-12-06] MEDS: Ondansetron 4 mg VIAL 2 MG/ML 2 ml VIAL IV PRN (07:59)
[2021-12-06] MEDS: SPIRIVA Respimat (tiotropium) 2.5 mcg/inh Inhaler INH SCH (09:12)
[2021-12-06] MEDS: Vitamin THERAPEUTIC TAB PO SCH (09:13)
[2021-12-06] MEDS: Magnesium Hydroxide LIQ 30 ML UDC PO SCH ×2 (09:14→20:45)
[2021-12-07] MEDS: Albuterol/Ipratropium RESP(NF) MDI (Combivent Respimat) INH SCH (07:15)
[2021-12-07 07:35] VITALS: BP 134/73
[2021-12-07] MEDS: SPIRIVA Respimat (tiotropium) 2.5 mcg/inh Inhaler INH SCH (07:35)
[2021-12-07 08:17] LABS: Hematocrit 30 % (35-47); Hemoglobin 9.8 g/dL (12.0-16.0); Mean Platelet Volume 7.7 fL (7.4-10.4); Platelet Count 299 10^3/uL (150-450)
[2021-12-07] MEDS: Magnesium Hydroxide LIQ 30 ML UDC PO SCH (08:33)
[2021-12-07] MEDS: Vitamin THERAPEUTIC TAB PO SCH (08:34)
== END 2021-12-07 10:50 | disposition home or self-care (01) ==
LOC: SSU 11:33 → OR 11:33
PROVIDERS: ADMIT Orthopaedic Surgery Adult Reconstructive Orthopaedic Surgery; ATTEND Orthopaedic Surgery Adult Reconstructive Orthopaedic Surgery